=== PATIENT | female | born 1945 | race Hispanic/Latino ===

== ENCOUNTER → 2018-10-10 | Day surgery (SDC) | payer MEDICARE ==
--- OUTSIDE RECORDS SUMMARY | 2018-10-08 10:27 | XMS REPORT ---
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
--- OUTSIDE RECORDS SUMMARY | 2018-10-08 10:27 | XMS REPORT | Continuity of Care Document ---
Author Author [facility] Address Unknown Phone Unavailable Problems Problem Status Onset Date Classification Date Reported Comments Source Polyarthritis Active Problem 06/25/2018 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 Long-term use of high-risk medication Active Problem 06/25/2018 Urban Juan Carlos Osteoporosis Active Problem 06/25/2018 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 Vitamin D deficiency Active Problem 06/25/2018 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 Shoulder pain, right Active Problem 06/25/2018 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 Wheezing Active Problem 06/25/2018 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 [facility] use of non-steroidal anti-inflammatories (NSAID) Active Problem 06/25/2018 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 Osteoarthritis Active Problem 06/25/2018 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 Medications Medication Details Route Status Patient Instructions Ordering Provider Order Date Source Tramadol HCl 1 tablet as needed Orally Active 50 MG Orally TID Shields 01/21/2018 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 Diclofenac Sodium 4 grams Transdermal Active 1 % Transdermal Four times a day [place] 11/21/2017 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 Plaquenil 1 tablet with food or milk Orally Active 200 MG Orally Once a day Shields 11/21/2017 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 Synvisc One 1 Intra-articular Active 48 MG/6ML Intra-articular one injecition Shields 05/24/2017 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 Vitamin D 1 capsule Orally Active 12915 U Orally Once a week Shields 05/24/2017 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 Celecoxib 1 capsule Orally Active 100 MG Orally Twice a day Shields 03/29/2017 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 Metoprolol Succinate as directed Orally Active 100 MG Orally [place] 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 Celecoxib 1 capsule Orally Active 100 MG Orally Twice a day [place] 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 GlipiZIDE XL 1 tablet Orally Active 5 MG Orally Once a day [place] 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 Pravastatin Sodium 1 tablet Orally Active 40 MG Orally Once a day [place] 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 Vitamin D 1 capsule Orally Active 39876 U Orally Once a week [place] 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 Losartan Potassium 1 tablet Orally Active 100 MG Orally Once a day [place] 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 Fenofibrate 1 tablet with a meal Orally Active 160 MG Orally Once a day [place] 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 Omeprazole 1 capsule Orally Active 40 MG Orally Once a day [place] 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 Prolia as directed Subcutaneous Active 60 MG/ML Subcutaneous [place] 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 Nisoldipine ER 1 tablet on an empty stomach Orally Active 17 MG Orally Once a day [place] 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 Vitamin D 2 tablets Orally Active 400 UNIT Orally Once a day Shields 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 Tramadol one tab orally Active 50 mg orally every 4-6 hours prn pain Shields 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 Tylenol 2 tablets as needed Orally Active 325 MG Orally BID [place] 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 Plaquenil 1 tablet with food or milk Orally Active 200 MG Orally Once a day [place] 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 Allergies, Adverse Reactions, Alerts Substance Category Reaction Severity Reaction type Status Date Reported Comments Source N.K.D.A. Adverse Reaction Info Not Available Adverse Reaction Active 05/24/2018 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 Immunizations Immunization Date Given Site Status Last Updated Comments Source Results Order Name Results Value Reference Range Date Interpretation Comments Source Vital Signs Vital Sign Value Date Comments Source Weight 130.8 05/24/2018 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 Height 62 05/24/2018 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 Temperature Oral (F) 98.7 F 05/24/2018 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 Heart Rate 70 05/24/2018 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 Diastolic (mm Hg) 60 05/24/2018 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 Systolic (mm Hg) 110 05/24/2018 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 Weight 129.7 01/21/2018 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 Height 62 01/21/2018 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 Temperature Oral (F) 98.7 F 01/21/2018 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 Heart Rate 74 01/21/2018 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 Diastolic (mm Hg) 70 01/21/2018 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 Systolic (mm Hg) 126 01/21/2018 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 Weight 127 11/21/2017 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 Height 62 11/21/2017 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 Temperature Oral (F) 98.0 F 11/21/2017 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 Heart Rate 72 11/21/2017 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 Diastolic (mm Hg) 64 11/21/2017 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 Systolic (mm Hg) 120 11/21/2017 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 Weight 128.7 08/09/2017 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 Height 61 08/09/2017 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 Temperature Oral (F) 98.5 F 08/09/2017 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 Heart Rate 70 08/09/2017 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 Diastolic (mm Hg) 76 08/09/2017 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 Systolic (mm Hg) 118 08/09/2017 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 Weight 128.2 05/24/2017 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 Height 61 05/24/2017 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 Temperature Oral (F) 98.7 F 05/24/2017 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 Heart Rate 80 05/24/2017 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 Diastolic (mm Hg) 66 05/24/2017 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 Systolic (mm Hg) 120 05/24/2017 Urban Bakerer Encounters Location Location Details Encounter Type Encounter Number Reason For Visit Attending Provider ADM Date DC Date Status Source Outpatient [id number] FAYE VALERA 12/01/2015 Active [facility] Procedures Procedure Code Date Perfomer Comments Source
--- OUTSIDE RECORDS SUMMARY | 2018-10-08 10:28 | XMS REPORT ---
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
--- OUTSIDE RECORDS SUMMARY | 2018-10-08 10:28 | XMS REPORT ---
Author Author Naida Shields [facility] eClinicalWorks Address Unknown Phone Unavailable Care Team Providers Care Bean Snipper Name Role Phone Naida Shields CP Unavailable Allergies, Adverse Reactions, Alerts Substance Reaction Event Type N.K.D.A. Info Not Available Non Drug Allergy Problems Problem Type Condition Code Onset Dates Condition Status Assessment Polyarthritis M13.0 Active Problem Polyarthritis M13.0 Active Assessment Osteoarthritis M19.90 Active Problem Long-term use of high-risk medication Z79.899 Active Problem Osteoporosis M81.0 Active Problem Vitamin D deficiency E55.9 Active Problem Shoulder pain, right M25.511 Active Problem Wheezing R06.2 Active Problem long-term (current) use of non-steroidal anti-inflammatories (NSAID) Z79.1 Active Problem Osteoarthritis M19.90 Active Medications Medication Code System Code Instructions Start Date End Date Status Dosage Nisoldipine ER ND 29420617849 17 MG Orally Once a day Active 1 tablet on an empty stomach Plaquenil ND 55769448028 200 MG Orally Once a day November 21, 2017 Active 1 tablet with food or milk Tylenol ND 07385846760 325 MG Orally BID Active 2 tablets as needed Fenofibrate ND 25464573576 160 MG Orally Once a day Active 1 tablet with a meal Losartan Potassium ND 95047628347 100 MG Orally Once a day Active 1 tablet Metoprolol Succinate NDC 0 100 MG Orally Active as directed GlipiZIDE XL ND 59595971771 5 MG Orally Once a day Active 1 tablet Prolia ND 84591768220 60 MG/ML Subcutaneous Active as directed Omeprazole ND 45782174268 40 MG Orally Once a day Active 1 capsule Tramadol HCl ND 07573443472 50 MG Orally TID January 21, 2018 Feb 20, 2018 Active 1 tablet as needed Diclofenac Sodium ND 99564918300 1 % Transdermal Four times a day November 21, 2017 Active 4 grams Vital Signs Date/Time: January 21, 2018 BMI 23.72 Index Weight 129.7 lbs Height 62 in Temperature 98.7 F Cardiac Monitoring Heart Rate 74 /min Blood Pressure Diastolic 70 mm Hg Blood Pressure Systolic 126 mm Hg Results No Known Results Summary Purpose eClinicalWorks Submission
--- OUTSIDE RECORDS SUMMARY | 2018-10-08 10:28 | XMS REPORT ---
Author Author Naida Shields [facility] eClinicalWorks Address Unknown Phone Unavailable Care Team Providers Care Transport Nurse Name Role Phone Naida Shields Unavailable Allergies, Adverse Reactions, Alerts Substance Reaction Event Type N.K.D.A. 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 (NSAID) Z79.1 Active Problem Osteoarthritis M19.90 Active Medications Medication Code System Code Instructions Start Date End Date Status Dosage Pravastatin Sodium ND 09545548990 40 MG Orally Once a day Active 1 tablet Prolia [facility] 63468652817 60 MG/ML Subcutaneous Active as directed Diclofenac Sodium [facility] 86802624877 1 % Transdermal Four times a day November 21, 2017 February 19, 2018 Active 4 grams Plaquenil [facility] 81894846373 200 MG Orally Once a day November 21, 2017 February 19, 2018 Active 1 tablet with food or milk Fenofibrate ND 12442947647 160 MG Orally Once a day Active 1 tablet with a meal Omeprazole ND 76324620801 40 MG Orally Once a day Active 1 capsule Losartan Potassium ND 88722094275 100 MG Orally Once a day Active 1 tablet Nisoldipine ER ND 66853504259 17 MG Orally Once a day Active 1 tablet on an empty stomach Metoprolol Succinate NDC 0 100 MG Orally Active as directed GlipiZIDE XL ND 81600625934 5 MG Orally Once a day Active 1 tablet Vitamin D [facility] [address]-43 76258 U Orally Once a week Active 1 capsule Vital Signs Date/Time: November 21, 2017 BMI 23.23 Index Weight 127 lbs Height 62 in Temperature 98.0 F Cardiac Monitoring Heart Rate 72 /min Blood Pressure Diastolic 64 mm Hg Blood Pressure Systolic 120 mm Hg Results No Known Results Summary Purpose eClinicalWorks Submission
--- OUTSIDE RECORDS SUMMARY | 2018-10-08 10:28 | XMS REPORT ---
Author Author Naida Shields [facility] eClinicalWorks Address Unknown Phone Unavailable Care Team Providers Care Paring Machine Operator Name Role Phone Naida Shields Unavailable Allergies, Adverse Reactions, Alerts Substance Reaction Event Type N.K.D.A. 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) Z79.1 Active Problem Osteoarthritis M19.90 Active Medications Medication Code System Code Instructions Start Date End Date Status Dosage Losartan Potassium ND 54149093830 100 MG Orally Once a day Active 1 tablet Celecoxib ND 84688089392 100 MG Orally Twice a day Mar 29, 2017 Active 1 capsule Pravastatin Sodium ND 71693920177 40 MG Orally Once a day Active 1 tablet Vitamin D [facility] 52749462570 400 UNIT Orally Once a day Active 2 tablets Synvisc One [facility] 17233536077 48 MG/6ML Intra-articular one injecition May 24, 2017 May 25, 2017 Active 1 Metoprolol Succinate NDC 0 100 MG Orally Active as directed Vitamin D [facility] [address]-26 95529 U Orally Once a week May 24, 2017 November 20, 2017 Active 1 capsule GlipiZIDE XL ND 02862216974 5 MG Orally Once a day Active 1 tablet Nisoldipine ER ND 18288813574 17 MG Orally Once a day Active 1 tablet on an empty stomach Omeprazole ND 56576527780 40 MG Orally Once a day Active 1 capsule Prolia [facility] 36645459214 60 MG/ML Subcutaneous Active as directed Fenofibrate [facility] 69648463628 160 MG Orally Once a day Active 1 tablet with a meal Vital Signs Date/Time: May 24, 2017 BMI 24.22 Index Weight 128.2 lbs Height 61 in Temperature 98.7 F Cardiac Monitoring Heart Rate 80 /min Blood Pressure Diastolic 66 mm Hg Blood Pressure Systolic 120 mm Hg Results No Known Results Summary Purpose eClinicalWorks Submission
--- OUTSIDE RECORDS SUMMARY | 2018-10-08 10:28 | XMS REPORT ---
Author Author Kelli Vann [facility] eClinicalWorks Address Unknown Phone Unavailable Care Team Providers Care Cattle Alley Worker Name Role Phone Soo Mekhicristiane Unavailable Allergies, Adverse Reactions, Alerts Substance Reaction Event Type N.K.D.A. 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 anti-inflammatories (NSAID) Z79.1 Active Problem Osteoarthritis M19.90 Active Medications Medication Code System Code Instructions Start Date End Date Status Dosage Metoprolol Succinate NDC 0 100 MG Orally Active as directed Celecoxib ND 73617822384 100 MG Orally Twice a day Active 1 capsule GlipiZIDE XL ND 53004941709 5 MG Orally Once a day Active 1 tablet Pravastatin Sodium ND 16413726535 40 MG Orally Once a day Active 1 tablet Vitamin D [facility] [address]-58 92107 U Orally Once a week Active 1 capsule Losartan Potassium ND 39553865394 100 MG Orally Once a day Active 1 tablet Fenofibrate ND 21975033134 160 MG Orally Once a day Active 1 tablet with a meal Omeprazole ND 14254253899 40 MG Orally Once a day Active 1 capsule Prolia ND 04416079733 60 MG/ML Subcutaneous Active as directed Nisoldipine ER ND 28459692135 17 MG Orally Once a day Active 1 tablet on an empty stomach Vital Signs Date/Time: Aug 09, 2017 BMI 24.31 Index Weight 128.7 lbs Height 61 in Temperature 98.5 F Cardiac Monitoring Heart Rate 70 /min Blood Pressure Diastolic 76 mm Hg Blood Pressure Systolic 118 mm Hg Results No Known Results Summary Purpose eClinicalWorks Submission
--- OUTSIDE RECORDS SUMMARY | 2018-10-08 10:28 | XMS REPORT ---
Author Author Nevaeh Whiting [facility] eClinicalWorks Address Unknown Phone Unavailable Care Team Providers Care Desk Sergeant Name Role Phone Nevaeh Whiting Unavailable Allergies, Adverse Reactions, Alerts Substance Reaction Event Type N.K.D.A. 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 non-steroidal anti-inflammatories (NSAID) Z79.1 Active Problem Osteoarthritis M19.90 Active Medications Medication Code System Code Instructions Start Date End Date Status Dosage Losartan Potassium ND 33825511678 100 MG Orally Once a day Active 1 tablet Nisoldipine ER ND 53015572432 17 MG Orally Once a day Active 1 tablet on an empty stomach Fenofibrate ND 11927934301 160 MG Orally Once a day Active 1 tablet with a meal Diclofenac Sodium [facility] 89578022034 1 % Transdermal Four times a day November 21, 2017 Active 4 grams Plaquenil ND 35371194772 200 MG Orally Once a day Active 1 tablet with food or milk Tylenol ND 87004059870 325 MG Orally BID Active 2 tablets as needed Omeprazole ND 15155726467 40 MG Orally Once a day Active 1 capsule Prolia [facility] 42524697133 60 MG/ML Subcutaneous Active as directed Metoprolol Succinate NDC 0 100 MG Orally Active as directed GlipiZIDE XL ND 90178187667 5 MG Orally Once a day Active 1 tablet Vital Signs Date/Time: May 24, 2018 BMI 23.92 Index Weight 130.8 lbs Height 62 in Temperature 98.7 F Cardiac Monitoring Heart Rate 70 /min Blood Pressure Diastolic 60 mm Hg Blood Pressure Systolic 110 mm Hg Results Name Result Date Reference Range Unit Abnormality Flag CBC W/AUTO DIFF ----MONOCYTES 7.8 [id number] 4.0-13.0 % ----LYMPHOCYTES 21.2 [id number] 19.0-48.0 % ----HEMOGLOBIN 12.8 54486902 11.5-15.5 G/DL ----HEMATOCRIT 39.0 98222127 34.0-45.0 % ----MCV 89.9 75719656 80.0-100.0 fL ----MCH 29.5 09383839 27.0-34.0 PG ----MCHC 32.8 14217550 32.0-35.5 G/DL ----PLATELET COUNT 548 48611716 130-400 K/UL H ----RDW 12.0 97003957 11.0-15.0 % ----WBC 8.1 57274287 4.0-11.0 K/UL ----NEUTROPHILS 68.7 67681883 40.0-74.0 % ----BASOPHILS 0.2 24699126 0.0-2.0 % ----RBC 4.34 31262850 3.80-5.10 M/UL ----EOSINOPHILS 2.1 77328378 0.0-7.0 % VITAMIN D, 25 OH ----VITAMIN D, 25 OH 56 [id number] SEE BELOW NG/ML COMPREHENSIVE METABOLIC PANEL ----SODIUM 141 28632226 133-146 MEQ/L ----CALC BUN/CREAT 29 42244890 6-28 RATIO H ----CHLORIDE 104 06989672 95-107 MEQ/L ----POTASSIUM 4.7 06342051 3.5-5.4 MEQ/L ----CALCIUM 9.9 34053881 8.5-10.5 MG/DL ----PROTEIN, TOTAL 7.0 61743342 6.1-8.3 G/DL ----CARBON DIOXIDE 24 20180524 19-31 MEQ/L ----CALC A/G RATIO 1.6 59251922 1.0-2.6 RATIO ---- eGFR AMER. 100 20180524 >60 ML/MIN/1.73 ----BILIRUBIN, TOTAL <0.2 20180524 <=1.2 MG/DL ---- eGFR NON- AMER. 86 20180524 >60 ML/MIN/1.73 ----BUN 20 20180524 8-23 MG/DL ----ALBUMIN 4.3 74560905 3.5-5.2 G/DL ----CALC GLOBULIN 2.7 20180524 1.9-3.7 G/DL ----CREATININE 0.68 20180524 0.60-1.30 MG/DL ----ALT 13 20180524 5-40 U/L ----GLUCOSE 153 20180524 70-99 MG/DL H ----ALKALINE PHOSPHATASE 42 20180524 40-142 U/L ----AST 18 20180524 9-40 U/L Summary Purpose eClinicalWorks Submission
--- OUTSIDE RECORDS SUMMARY | 2018-10-08 10:28 | XMS REPORT ---
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
--- OUTSIDE RECORDS SUMMARY | 2018-10-08 10:28 | XMS REPORT ---
Author Author Stephen Rangel Organization eClinicalWorks Address Unknown Phone Unavailable Care Team Providers Care Insulation Supervisor Name Role Phone Stephen Rangel CP Unavailable Allergies No Known Allergies Problems Problem Type Condition Code Onset Dates Condition Status Problem Polyarthritis M13.0 Active Problem Long-term use of high-risk medication Z79.899 Active Problem Osteoporosis M81.0 Active Problem Vitamin D deficiency E55.9 Active Problem Shoulder pain, right M25.511 Active Problem Wheezing R06.2 Active Problem terminal carman (current) use of non-steroidal anti-inflammatories (NSAID) Z79.1 Active Problem Osteoarthritis M19.90 Active Medications No Known Medications Results No Known Results Summary Purpose eClinicalWorks Submission
[2018-10-08 12:17] LABS: BASOPHILS % 0.2 % (0.0-1.0); EOSINOPHILS # (AUTO) 0.6 (0.0-0.4); EOSINOPHILS % 6.3 % (0.0-6.0); HEMOGLOBIN 9.1 g/dL (12.0-16.0); LYMPHOCYTES # (AUTO) 1.6 (1.0-3.2); LYMPHOCYTES % 18.4 % (18.0-39.1); MEAN CORPUSCULAR HEMOGLOBIN 28.7 pg (28-32); MEAN CORPUSCULAR HGB CONC 30.3 g/dL (31-35); MEAN CORPUSCULAR VOLUME 94.6 fL (81-99); MONOCYTES # (AUTO) 0.5 (0.2-0.8); MONOCYTES % 6.1 % (4.4-11.3); NEUTROPHILS # (AUTO) 6.1 (2.1-6.9); NEUTROPHILS % 68.5 % (38.7-80.0); PLATELET COUNT 754 x10e3/uL (140-360); RED BLOOD COUNT 3.17 x10e6/uL (3.6-5.1); RED CELL DISTRIBUTION WIDTH 13.6 % (11.7-14.4)
[~2018-10-10] MED LIST: DECARA25000 UNIT; FENOFIBRATE145 MG; FENTANYL CITRATE/PF 100MCG/2 ML INJ ONE; GLIPIZIDE ER5 MG; IRON PILL; LORATADINE10 MG PO; LOSARTAN POTAS100 MG PO; MELOXICAM7.5 MG PO; METOPROLOL SUCC50 MG PO; MIDAZOLAM HCL 2 MG/2 ML VIAL ONE; NIFEDIPINE ER30 MG; OMEPRAZOLE40 MG; PROPOFOL IV EMULSION 10 MG/ML 50 ML VIAL ONE
[2018-10-10 09:30] VITALS: BP 127/67
== END | disposition home or self-care (01) ==
LOC: OR 10-08 10:24 → EDSEX 08:30
PROVIDERS: ATTEND Internal Medicine Gastroenterology
DX: K29.50 Unspecified chronic gastritis without bleeding (principal); K25.7 Chronic gastric ulcer without hemorrhage or perforation; K57.30 Diverticulosis of large intestine without perforation or abscess without bleeding; K64.8 Other hemorrhoids; K21.9 Gastro-esophageal reflux disease without esophagitis; Z71.3 Dietary counseling and surveillance; D64.9 Anemia, unspecified; E11.9 Type 2 diabetes mellitus without complications; I10 Essential (primary) hypertension; J30.2 Other seasonal allergic rhinitis; Z01.810 Encounter for preprocedural cardiovascular examination; Z79.84 Long term (current) use of oral hypoglycemic drugs
CPT/HCPCS: 36415 ×2; 43239; 45378; 82948; 85025; 88305; 88312; 93005; J2250; J2704

== ENCOUNTER 2020-06-04 18:23 | Observation (INO) | payer MEDICARE ==
[~2020-06-04] VITALS: Ht 160 cm; Wt 75.1 kg
[~2020-06-04 18:23] MED LIST changes: -FENTANYL CITRATE/PF 100MCG/2 ML INJ ONE; -GLIPIZIDE ER5 MG; +GLIPIZIDE ER5 MG PO; -MIDAZOLAM HCL 2 MG/2 ML VIAL ONE; -PROPOFOL IV EMULSION 10 MG/ML 50 ML VIAL ONE
--- NOTE | 2020-06-04 18:26 | Emergency Department Note ---
History of Present Illnes History of Present Illness History of Present Illness This is a 74 year old female presents to the ED for non-radiating CP without SOB. Seen at bedside NAD. recent fall on 05/26/2020 and was checked out by EMS with noted low BS. Patient was not taken to ED and was evaluated .Since the fall, patient has been appearing weaker per family member. Seen at bedside NAD Historian: Patient Arrival Mode: Car Onset (how long ago): day(s) Location: Substernal CP Radiation: Reports non-radiation Severity: moderate Onset quality: gradual Duration (how long): day(s) (1) Timing of current episode: constant Progression: worsening Chronicity: new Context: Denies recent illness, Denies recent surgery, Denies recent immobilization, Denies recent travel, Denies trauma/injury, Denies new medications, Denies hx of DVT/PE, Denies non-compliance w/ medications, Denies other Relieving factors: none Exacerbating factors: none Associated symptoms: Reports chest pain, Reports weakness Treatments prior to arrival: none Past Medical/Family History Physician Review I have reviewed the patient's past medical and family history. Any updates have been documented here. Past Medical History Recent Fever: No Clinical Suspicion of Infectio: No New/Unexplained Change in Ment: No Social History Smoking Cessation: Never Smoker Alcohol Use: None Any Illegal Drug Use: No Review of Systems Review of Systems Constitutional: Reports weakness, Reports other (myalgias) EENTM: Reports no symptoms Cardiovascular: Reports chest pain Respiratory: Reports no symptoms Gastrointestinal: Reports no symptoms Genitourinary: Reports no symptoms Musculoskeletal: Reports no symptoms Integumentary: Reports no symptoms Neurological: Reports no symptoms Psychological: Reports no symptoms Endocrine: Reports no symptoms Hematological/Lymphatic: Reports no symptoms Physical Exam Related Data Allergies: Coded Allergies: No Known Allergies (Unverified , 06/04/20) Triage Vital Signs Vital Signs Date Time Temp Pulse Resp B/P (MAP) Pulse Ox O2 Delivery O2 Flow Rate FiO2 06/04/20 18:50 98.1 82 18 175/105 99 Room Air Vital signs reviewed: Yes Physical Exam CONSTITUTIONAL Constitutional: Present well-developed, Present well-nourished HENT HENT: Present normocephalic, Present atraumatic, Present oropharynx clear/moist, Present nose normal HENT L/R: Present left ext ear normal, Present right ext ear normal EYES Eyes: Reports PERRL, Reports conjunctivae normal NECK Neck: Present ROM normal PULMONARY Pulmonary: Present effort normal, Present breath sounds normal CARDIOVASCULAR Cardiovascular: Present regular rhythm, Present heart sounds normal, Present capillary refill normal, Present normal rate, Present bradycardia GASTROINTESTINAL Abdominal: Present soft, Present nontender, Present bowel sounds normal GENITOURINARY Genitourinary: Present exam deferred SKIN Skin: Present warm, Present dry MUSCULOSKELETAL Musculoskeletal: Present ROM normal NEUROLOGICAL Neurological: Present alert, Present oriented x 3, Present no gross motor or sensory deficits PSYCHOLOGICAL Psychological: Present mood/affect normal, Present judgement normal Results Laboratory Lab results reviewed: Yes Laboratory comments Laboratory Tests Test 06/05/20 02:50 06/04/20 23:42 06/04/20 18:49 White Blood Count 6.66 x10e3/uL (4.8-10.8) 8.65 x10e3/uL (4.8-10.8) Red Blood Count 3.76 x10e6/uL (3.6-5.1) 3.95 x10e6/uL (3.6-5.1) Hemoglobin 10.1 g/dL (12.0-16.0) 10.6 g/dL (12.0-16.0) Hematocrit 32.9 % (34.2-44.1) 34.5 % (34.2-44.1) Mean Corpuscular Volume 87.5 fL (81-99) 87.3 fL (81-99) Mean Corpuscular Hemoglobin 26.9 pg (28-32) 26.8 pg (28-32) Mean Corpuscular Hemoglobin Concent 30.7 g/dL (31-35) 30.7 g/dL (31-35) Red Cell Distribution Width 15.9 % (11.7-14.4) 15.8 % (11.7-14.4) Platelet Count 342 x10e3/uL (140-360) 382 x10e3/uL (140-360) Neutrophils (%) (Auto) 58.9 % (38.7-80.0) 65.0 % (38.7-80.0) Lymphocytes (%) (Auto) 27.5 % (18.0-39.1) 23.2 % (18.0-39.1) Monocytes (%) (Auto) 8.3 % (4.4-11.3) 8.1 % (4.4-11.3) Eosinophils (%) (Auto) 3.5 % (0.0-6.0) 2.2 % (0.0-6.0) Basophils (%) (Auto) 0.3 % (0.0-1.0) 0.2 % (0.0-1.0) Neutrophils # (Auto) 3.9 (2.1-6.9) 5.6 (2.1-6.9) Lymphocytes # (Auto) 1.8 (1.0-3.2) 2.0 (1.0-3.2) Monocytes # (Auto) 0.6 (0.2-0.8) 0.7 (0.2-0.8) Eosinophils # (Auto) 0.2 (0.0-0.4) 0.2 (0.0-0.4) Basophils # (Auto) 0.0 (0.0-0.1) 0.0 (0.0-0.1) Absolute Immature Granulocyte (auto 0.10 x10e3/uL (0-0.1) 0.11 x10e3/uL (0-0.1) Sodium Level 141 mmol/L (136-145) 141 mmol/L (136-145) Potassium Level 3.8 mmol/L (3.5-5.1) 3.8 mmol/L (3.5-5.1) Chloride Level 106 mmol/L (98-107) 105 mmol/L (98-107) Carbon Dioxide Level 26 mmol/L (22-29) 25 mmol/L (22-29) Anion Gap 12.8 mmol/L (8-16) 14.8 mmol/L (8-16) Blood Urea Nitrogen 12 mg/dL (7-26) 14 mg/dL (7-26) Creatinine 0.70 mg/dL (0.57-1.11) 0.76 mg/dL (0.57-1.11) Estimat Glomerular Filtration Rate > 60 ML/MIN (60-) > 60 ML/MIN (60-) BUN/Creatinine Ratio 17 (6-25) 18 (6-25) Glucose Level 158 mg/dL (74-118) 117 mg/dL (74-118) Calcium Level 9.2 mg/dL (8.4-10.2) 9.1 mg/dL (8.4-10.2) Total Bilirubin 0.2 mg/dL (0.2-1.2) 0.2 mg/dL (0.2-1.2) Aspartate Amino Transf (AST/SGOT) 9 IU/L (5-34) 9 IU/L (5-34) Alanine Aminotransferase (ALT/SGPT) 7 IU/L (0-55) 7 IU/L (0-55) Alkaline Phosphatase 50 IU/L (40-150) 53 IU/L (40-150) Creatine Kinase 40 IU/L (29-168) 48 IU/L (29-168) Creatine Kinase MB 0.80 ng/mL (0-5.0) 0.90 ng/mL (0-5.0) Troponin I 0.028 ng/mL (0-0.300) 0.011 ng/mL (0-0.300) Total Protein 6.4 g/dL (6.5-8.1) 6.9 g/dL (6.5-8.1) Albumin 3.0 g/dL (3.5-5.0) 3.3 g/dL (3.5-5.0) Globulin 3.4 g/dL (2.3-3.5) 3.6 g/dL (2.3-3.5) Albumin/Globulin Ratio 0.9 (0.8-2.0) 0.9 (0.8-2.0) D-Dimer Quantitative (PE/DVT) 1.20 ug/mLFEU (0.00-0.45) B-Type Natriuretic Peptide 113.6 pg/mL (0-100) Imaging Imaging results reviewed: Yes Impressions [place] [address] Patient Name: LAURIE PEREZ MR #: [id number] : 1945 Age/Sex: 74/F Req #: [id number] Adm Physician: ROYAL MCCORD MD Ordered by: ARASELI ISAAC DO Report #: [id number] Location: [facility] Room/Bed: [place] [address] Procedure: [id number] CT/CT CHEST W Exam Date: Exam Time: REPORT STATUS: Signed EXAM: CT Chest WITH contrast (PE Protocol) INDICATION: ^chest pain COMPARISON: None TECHNIQUE: Chest was scanned utilizing a multidetector helical scanner from the lung apex through the level of the diaphragm after administration of IV contrast. Thin section reconstructions were obtained with special concentration on the pulmonary arteries. Coronal and sagittal reformations were obtained. Pulmonary embolism protocol was performed. IV CONTRAST: 100 mL of Isovue 370 COMPLICATIONS: None RADIATION DOSE: Total DLP: 465 mGy*cm Estimated effective dose: (DLP x 0.014 x size factor) mSv CTDIvol has been reviewed. It is below the limits set by the Radiation Protocol Committee (RPC). Dose modulation, iterative reconstruction, and/or weight based adjustment of the mA/kV was utilized to reduce the radiation dose to as low as reasonably achievable. FINDINGS: LINES/ TUBES: None. LUNGS AND AIRWAYS: No filling defect is identified within the pulmonary arteries to the segmental level. The lungs are unremarkable. Airways are normal. PLEURA: The pleural spaces are clear. HEART AND MEDIASTINUM: The thyroid gland is normal. No mediastinal, hilar or axillary lymphadenopathy. The heart is mildly enlarged. There is no pericardial effusion. . Main pulmonary artery measures 3.2 cm in diameter, slightly dilated, and the ascending aorta measures 3.2 cm.Triple vessel coronary artery calcific atherosclerosis. Aortic calcifications. UPPER ABDOMEN: Subcentimeter exophytic hypodensity along the left kidney is likely benign. Colonic diverticuli. BONES: The visualized bony thorax is within normal limits. Degenerative changes. SOFT TISSUES: Unremarkable. IMPRESSION: No pulmonary emboli. Mild cardiomegaly, triple vessel coronary artery calcific atherosclerosis, and evidence of pulmonary hypertension. Signed by: Speedy Sheikh DO on 06/04/2020 10:50 PM Dictated By: SPEEDY SHEIKH DO 49 Transcribed By: TALIA on 06/04/202249 COPY TO: ARASELI ISAAC DO~ [place] [address] Patient Name: LAURIE PEREZ MR #: [id number] : 1945 Age/Sex: 74/F Req #: [id number] Adm Physician: Ordered by: ARASELI ISAAC DO Report #: [id number] Location: ER Room/Bed: Procedure: [id number] DX/CHEST SINGLE (PORTABLE) Exam Date: 06/04/20 Exam Time: 1904 REPORT STATUS: Signed EXAMINATION: CHEST SINGLE (PORTABLE) INDICATION: Chest pain/pressure. COMPARISON: None FINDINGS: TUBES and LINES: None. LUNGS: Lungs are well inflated. Lungs are clear. There is minimal bilateral prominence of the central pulmonary vasculature, consistent with pulmonary venous congestion. PLEURA: No pleural effusion or pneumothorax. HEART AND MEDIASTINUM: Cardiac size is moderately enlarged. There are atherosclerotic calcifications within the aorta. Diffuse consolidation of the trachea. BONES AND SOFT TISSUES: No acute osseous lesion. Soft tissues are unremarkable. UPPER ABDOMEN: No free air under the diaphragm. IMPRESSION: Moderate cardiomegaly. Mild bilateral pulmonary venous congestion. Signed by: Dr. Del Coronado M.D. on 06/04/2020 7:21 PM Dictated By: LEE CORONADO MD, MD 20 Transcribed By: TALIA on 06/04/201920 COPY TO: ARASELI ISAAC DO~ Procedures 12 Lead ECG Interpretation ECG Interpretation : ECG: ECG 1 Online Editor: Interpreted by ED physician Date: Jun 04, 2020 Time: 18:54 Rhythm: sinus bradycardia Rate: bradycardia BPM: 56 ST segments normal: Yes T waves normal: No T waves flattening: V1, V2, V4, V5 Other findings: no other findings Clinical Impression: non-specific ECG Assessment & Plan Medical Decision Making MDM 74 yof with CP. Cardiac enzymes, EKG, and CXR/CT scan of chest wall ordered to evaluate for ACS, PNA, PTX, CHF, PE. CVA and aortic pathology Assessment & Plan Final Impression: (1) Weakness (2) Chest pain Depart Disposition: ADMITTED Home Meds Reported Medications Omeprazole (OMEPRAZOLE) 40 Mg Capsule.dr, 40 MG PO AC 06/05/20 Metoprolol Succinate (METOPROLOL SUCCINATE) 50 Mg Tab.er.24h, 100 MG PO DAILY, MG 06/05/20 [Losartan/Hctz] No Conflict Check, MG PO DAILY LOSARTAN-HCTZ 100-25MG 06/05/20 Doxazosin Mesylate (DOXAZOSIN MESYLATE) 1 Mg Tablet, 1 MG PO DAILY 06/05/20 Glipizide (GLIPIZIDE ER) 5 Mg Tab.er.24, 5 MG PO DAILY 10/08/18 Discontinued Reported Medications [Iron Pill] No Conflict Check, 325 10/08/18 Cholecalciferol (Vitamin D3) (DECARA) 25,000 Unit Capsule, 62631 10/08/18 Nifedipine (NIFEDIPINE ER) 30 Mg Tablet.er 10/08/18 Loratadine (LORATADINE) 10 Mg Tablet, 10 MG PO DAILY, #30 TAB 10/08/18 Fenofibrate Nanocrystallized (FENOFIBRATE) 145 Mg Tablet, 160 10/08/18 Losartan Potassium (LOSARTAN POTASSIUM) 100 Mg Tablet, 120 MG PO DAILY, TAB 10/08/18 Omeprazole (OMEPRAZOLE) 40 Mg Capsule.dr 10/08/18 Metoprolol Succinate (METOPROLOL SUCCINATE) 50 Mg Tab.er.24h, 100 MG PO DAILY, MG 10/08/18 Meloxicam (MELOXICAM) 7.5 Mg Tablet, 15 MG PO DAILY, #30 TAB 10/08/18 ARASELI ISAAC DO Jun 04, 2020 18:26
[2020-06-04 19:19] LABS: BASOPHILS % 0.2 % (0.0-1.0); EOSINOPHILS # (AUTO) 0.2 (0.0-0.4); EOSINOPHILS % 2.2 % (0.0-6.0); HEMATOCRIT 34.5 % (34.2-44.1); HEMOGLOBIN 10.6 g/dL (12.0-16.0); LYMPHOCYTES % 23.2 % (18.0-39.1); MEAN CORPUSCULAR HEMOGLOBIN 26.8 pg (28-32); MEAN CORPUSCULAR HGB CONC 30.7 g/dL (31-35); MEAN CORPUSCULAR VOLUME 87.3 fL (81-99); MONOCYTES # (AUTO) 0.7 (0.2-0.8); MONOCYTES % 8.1 % (4.4-11.3); NEUTROPHILS # (AUTO) 5.6 (2.1-6.9); PLATELET COUNT 382 x10e3/uL (140-360); RED BLOOD COUNT 3.95 x10e6/uL (3.6-5.1); RED CELL DISTRIBUTION WIDTH 15.8 % (11.7-14.4)
--- NOTE | 2020-06-04 19:24 | Diagnostic Imaging Report ---
EXAMINATION: CHEST SINGLE (PORTABLE) INDICATION: Chest pain/pressure. COMPARISON: None FINDINGS: TUBES and LINES: None. LUNGS: Lungs are well inflated. Lungs are clear. There is minimal bilateral prominence of the central pulmonary vasculature, consistent with pulmonary venous congestion. PLEURA: No pleural effusion or pneumothorax. HEART AND MEDIASTINUM: Cardiac size is moderately enlarged. There are atherosclerotic calcifications within the aorta. Diffuse consolidation of the trachea. BONES AND SOFT TISSUES: No acute osseous lesion. Soft tissues are unremarkable. UPPER ABDOMEN: No free air under the diaphragm. IMPRESSION: Moderate cardiomegaly. Mild bilateral pulmonary venous congestion. Signed by: Dr. Del Pena M.D. on 06/04/2020 7:21 PM
[2020-06-04 19:38] LABS: ALANINE AMINOTRANSFERASE 7 IU/L (0-55); ALBUMIN 3.3 g/dL (3.5-5.0); ALBUMIN/GLOBULIN RATIO 0.9 (0.8-2.0); ALKALINE PHOSPHATASE 53 IU/L (40-150); ANION GAP 14.8 mmol/L (8-16); BLOOD UREA NITROGEN 14 mg/dL (7-26); BUN/CREATININE RATIO 18 (6-25); CALCIUM 9.1 mg/dL (8.4-10.2); CARBON DIOXIDE 25 mmol/L (22-29); CHLORIDE 105 mmol/L (98-107); CREATINE KINASE 48 IU/L (29-168); CREATININE, SERUM 0.76 mg/dL (0.57-1.11); EST GLOMERULAR FILTRATION RATE > 60 ML/MIN (60-); GLUCOSE 117 mg/dL (74-118); POTASSIUM 3.8 mmol/L (3.5-5.1); SODIUM 141 mmol/L (136-145)
--- NOTE | 2020-06-04 19:54 | Diagnostic Imaging Report ---
EXAMINATION: Head CT without contrast. HISTORY:Weakness. COMPARISON:None. TECHNIQUE: Multidetector axial images were obtained from the foramen magnum to the vertex without contrast. The images were reconstructed using brain and bone algorithms. Thin section brain images were reformatted into coronal and sagittal planes. Dose modulation, iterative reconstruction, and/or weight based adjustment of the mA/kV was utilized to reduce the radiation dose to as low as reasonably achievable. Intravenous contrast: None IMAGE QUALITY: Acceptable. FINDINGS: Skull/scalp: Nonspecific focal 7 mm lytic lesion in right paramedian occipital calvarium. Parenchyma: Nonspecific bilateral frontoparietal patchy white matter hypodensity are likely related to small vessel ischemic changes. Dystrophic calcification in left lentiform nucleus represents sequel a of prior infection/inflammation or trauma. No acute hemorrhage, mass or acute major vascular territorial infarct. Arteries: No density suggestive of thrombosis. Atherosclerotic calcification in bilateral carotid siphon. Dural sinuses: No abnormal density suggestive of thrombosis. Ventricles: Mild compensated dilatation due to volume loss. No hydrocephalus. Extra-axial spaces: No abnormal density. Brain volume: Moderate generalized, predominantly bilateral frontal volume loss. Craniocervical junction: No mass, Chiari malformation, or basilar invagination. Sella: No mass. Paranasal/mastoid sinuses: 7 mm exophytic sinolith/osteoma in left frontal sinus. IMPRESSION: No acute intracranial abnormality. Moderate supratentorial white matter microvascular ischemic changes. Moderate predominantly bifrontal cerebral volume loss. Signed by: Dr. Rosalie Anaya M.D. on 06/04/2020 7:50 PM
--- OUTSIDE RECORDS SUMMARY | 2020-06-04 19:59 | XMS REPORT | Continuity of Care Document ---
Author Author [employer] Address Unknown Phone Unavailable Care Team Providers Care Customer Acquisition Manager Name Role Phone [employer] Unavailable Un available Problems Problem Status Onset Date Classification Date Reported Comments Source Polyarthritis Active Problem 04/16/2019 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 Long-term use of high-risk medication Active Problem 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 Osteoporosis Active Problem 04/16/2019 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 Vitamin D deficiency Active Problem 04/16/2019 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 Shoulder pain, right Active Problem 04/16/2019 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 Wheezing Active Problem 04/16/2019 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 anti-inflammatories (NSAID) Active Prob erica 04/16/2019 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 Osteoarthritis Active Problem 04/16/2019 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 Medications Medication Details Route Status Patient Instructions Ordering Provider Order Date Source Tramadol HCl 1 tablet as needed Orally Active 50 MG Orally TID [facility] 01/21/2018 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 Plaquenil 1 tablet with food o r milk Orally Active 200 MG Orally Once a day [facility]s 11/21/2017 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 Diclofenac Sodium 4 grams Transdermal Active 1 % Transdermal Four times a day [place] 11/21/2017 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 Synvisc One 1 Intra-articular Active 48 MG/6ML Intra-articul ar one injecition [facility] 05/24/2017 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 Vitamin D 1 capsule Orally Active 08829 U Orally Once a w zuni Shields 05/24/2017 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 Celecoxib 1 capsule Orally Active 100 MG Orally Twice a d ay Shields 03/29/2017 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 Metoprolol Succinate as direct ed Orally Active 100 MG Orally [place] 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 Celecoxib 1 capsule Orally Active 100 MG Orally Twice a d ay [place] 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 GlipiZIDE XL 1 tablet Orally Active 5 MG Orally Once a day [place] R[facility] Pravastatin Sodium 1 tablet Orally Active 40 MG Orally Once a day [facility]ius Rangel Vitamin D 1 capsule Orally Active 60673 U Orally Once a w zuni Cornelius Rangel Losartan Potassium 1 tablet Orally Active 100 MG Orally Once a day [place] 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 Fenofibrate 1 tablet with a me al Orally Active 160 MG Orally Once a day [place] 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 Omeprazole 1 capsule Orally Active 40 MG Orally Once a day [place] Rangel Prolia as directed Subcutaneous Active 60 MG/ML Subcutaneous [place] 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 Nisoldipine ER 1 tablet on an empty stomach Orally Active 17 MG Orally Once a day [place] 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 Vitamin D 2 tablets Orally Active 400 UNIT Orally Once a day [facility] 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 Tramadol one tab orally Active 50 mg orally every 4-6 hours prn pain Cornelius Rangel Tylenol 2 tablets as needed Orally Active 325 MG Orally BID [place] 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 Plaquenil 1 tablet with food o r milk Orally Active 200 MG Orally Once a day [place] Urbanwalter Rangel Allergies, Adverse Reactions, Alerts Substance Category Reaction Severity Reaction type Status Date Reported Comments Source N.K.D.A. Adverse Reaction Info Not Available Adverse Reaction Active 05/24/2018 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 Immunizations No Data Provided for This Section Results No Data Provided for This Section Pathology Reports No Data Provided for This Section Diagnostic Reports No Data Provided for This Section Consultation Notes No Data Provided for This Section Discharge Summaries No Data Provided for This Section History and Physicals No Data Provided for This Section Vital Signs Vital Sign Value Date Comments Source Weight 130.8 05/24/2018 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 Height 62 1 07/24/2017 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 Temperature Oral (F) 98.7 F 05/24/2018 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 Heart Rate 70 05/24/2018 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 Diastolic (mm Hg) 60 05/24/2018 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 Systolic (mm Hg) 110 05/24/2018 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 Bakerer Weight 129.7 01/21/2018 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 Height 62 0 01/21/2018 [facility] Bakerer Temperature Oral (F) 98.7 F 01/21/2018 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 Heart Rate 74 01/21/2018 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 Diastolic (mm Hg) 70 01/21/2018 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 Systolic (mm Hg) 126 01/21/2018 Urban Bakerer Weight 127 11/21/2017 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 Height 62 0 11/21/2017 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 Temperature Oral (F) 98.0 F 11/21/2017 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 Heart Rate 72 11/21/2017 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 Diastolic (mm Hg) 64 11/21/2017 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 Systolic (mm Hg) 120 11/21/2017 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 Weight 128.7 08/09/2017 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 Height 61 0 08/09/2017 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 Temperature Oral (F) 98.5 F 08/09/2017 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 Heart Rate 70 08/09/2017 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 Diastolic (mm Hg) 76 08/09/2017 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 Systolic (mm Hg) 118 08/09/2017 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 Weight 128.2 05/24/2017 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 Height 61 1 07/24/2016 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 Temperature Oral (F) 98.7 F 05/24/2017 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 Heart Rate 80 05/24/2017 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 Diastolic (mm Hg) 66 05/24/2017 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 Systolic (mm Hg) 120 05/24/2017 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 Encounters No Data Provided for This Section Procedures No Data Provided for This Section Assessment and Plan No Data Provided for This Section Plan of Care No Data Provided for This Section Social History No Data Provided for This Section Family History No Data Provided for This Section Advance Directives No Data Provided for This Section Functional Status No Data Provided for This Section
--- OUTSIDE RECORDS SUMMARY | 2020-06-04 19:59 | XMS REPORT | Continuity of Care Document ---
Author Author [facility] t Organization [facility] Address [address] [place] [address] Phone Unavailable Care Team Providers Care Carriage Dogger Name Role Phone ARASELI ISAAC Unavailable Payers Payer Name Policy Type Policy Number Effective Date Expiration Date S ource Problems Condition Name Condition Details Condition Category Status Onset Date Resolution Date Last Treatment Date Treating Clinician Comments Source Polyarthritis Poly arthritis Active Problem 04/16/2019 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 Problem Active 2019-04-16 02:57:44 Brock Abrams Long-term use of high-risk medication Long-term use of high-risk medication Active Problem 04/16/2019 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 Problem Active 2019-04-16 02:57:44 Brock Abrams Osteoporosis Oste oporosis Active Problem 04/16/2019 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 Problem Active 2019-04-16 02:57:44 Brock Abrams Vitamin D deficiency Patricia min D deficiency Active Problem 04/16/2019 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 Problem Active 2019-04-16 02:57:44 Brock Abrams Shoulder pain, right Shou lder pain, right Active Problem 04/16/2019 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 Problem Active 2019-04-16 02:57:44 Brock Abrams Wheezing Whee zing Active Problem 04/16/2019 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 Problem Active 2019-04-16 02:57:44 Constantin Abrams skilled nursing (current) use of non-steroidal anti-inflamma tories (NSAID) inspector tool (current) use of non-steroidal anti-inflammatories (NSAID) Active Problem 04/16/2019 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 Problem Active 2019-04-16 02:57:44 [facility] Osteoarthritis Oste oarthritis Active Problem 04/16/2019 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 Problem Active 2019-04-16 02:57:44 [facility] Allergies, Adverse Reactions, Alerts Allergy Name Allergy Type Status Severity Reaction(s) Onset Date Inacti ve Date Treating Clinician Comments Source No Known Allergies DA Active U 2019-01-17 00:00:00 [facility] N.KOniA. N.Musa Active Info Not Available 2018-05-24 00:00:00 [facility] Medications Ordered Medication Name Filled Medication Name Start Date Stop Da te Current Medication? Ordering Clinician Indication Dosage Frequency Signature (SIG) Comments Components Source Tramadol 2018-06-25 03:46:48 Yes Naida Shields o ne tab [facility] Metoprolol Succinate 2018-06-04 03:47:00 Yes Wajeeha You saf as directed [facility] GlipiZIDE XL 2018-06-04 03:47:00 Yes Wajeeha Henok 1 tablet [facility] Losartan Potassium 2018-06-04 03:47:00 Yes Wajeeha Henok 1 tablet [facility] Fenofibrate 2018-06-04 03:47:00 Yes Wajeeha Henok 1 tablet with a meal [facility] Omeprazole 2018-06-04 03:47:00 Yes Wajeeha Henok 1 capsule [facility] Prolia 2018-06-04 03:47:00 Yes Wajeeha Henok as directed [facility] Nisoldipine ER 2018-06-04 03:47:00 Yes Wajeeha Henok 1 tablet on an empty stomach [facility] Tylenol 2018-06-04 03:47:00 Yes Wajeeha Henok 2 tablets as needed [facility] Plaquenil 2018-06-04 03:47:00 Yes Wajeeha Henok 1 tablet with food or milk [facility] Tramadol HCl 2018-01-21 00:00:00 Yes Naida Bakerace 1 tablet as needed [facility] Pravastatin Sodium 2017-11-24 02:46:39 Yes Naida Bakerace 1 tablet [facility] Vitamin D 2017-11-24 02:46:39 Yes Naida Shields 1 capsule [facility] Plaquenil 2017-11-21 00:00:00 Yes Naiad Shields 1 tablet with food or milk [facility] Diclofenac Sodium 2017-11-21 00:00:00 Yes Nevaeh Lewissaf 4 grams [facility] Celecoxib 2017-08-14 03:46:39 Yes Latifa Fakoya 1 capsule [facility] Vitamin D 2017-05-26 02:46:48 Yes Naida Shields 2 tablets [facility] Synvisc One 2017-05-24 00:00:00 Yes Naida Shields 1 [facility] Vitamin D 2017-05-24 00:00:00 Yes Naida Shields 1 capsule [facility] Celecoxib 2017-03-29 00:00:00 Yes Naida Shields 1 capsule [facility] Vital Signs Vital Name Observation Time Observation Value Comments Source Weight 2018-05-24 16:00:00 [facility] Height 2018-05-24 16:00:00 [facility] Temperature Oral (F) 2018-05-24 16:00:00 98.7 F [facility] Heart Rate 2018-05-24 16:00:00 [facility] Diastolic (mm Hg) 2018-05-24 16:00:00 [facility] Systolic (mm Hg) 2018-05-24 16:00:00 Constantin [facility]el [facility] Weight 2018-01-21 15:00:00 [facility] Height 2018-01-21 15:00:00 [facility] Temperature Oral (F) 2018-01-21 15:00:00 98.7 F [facility] Heart Rate 2018-01-21 15:00:00 [facility] Diastolic (mm Hg) 2018-01-21 15:00:00 [facility] Systolic (mm Hg) 2018-01-21 15:00:00 Constantin [facility] Weight 2017-11-21 13:30:00 [facility] Height 2017-11-21 13:30:00 [facility] Temperature Oral (F) 2017-11-21 13:30:00 98.0 F [facility] Heart Rate 2017-11-21 13:30:00 [facility] Diastolic (mm Hg) 2017-11-21 13:30:00 [facility] Systolic (mm Hg) 2017-11-21 13:30:00 Constantin [facility] Weight 2017-08-09 19:30:00 [facility] Height 2017-08-09 19:30:00 [facility] Temperature Oral (F) 2017-08-09 19:30:00 98.5 F [facility] Heart Rate 2017-08-09 19:30:00 [facility] Diastolic (mm Hg) 2017-08-09 19:30:00 [facility] Systolic (mm Hg) 2017-08-09 19:30:00 Constantin [facility] Weight 2017-05-24 13:30:00 [facility] Height 2017-05-24 13:30:00 [facility] Temperature Oral (F) 2017-05-24 13:30:00 98.7 F [facility] Heart Rate 2017-05-24 13:30:00 [facility] Diastolic (mm Hg) 2017-05-24 13:30:00 [facility] Systolic (mm Hg) 2017-05-24 13:30:00 Constantin [facility] Procedures This patient has no known procedures. Encounters Start Date/Time End Date/Time Encounter Type Admission Type [facility] Care Department Encounter ID Source 2020-04-06 11:07:21 Inpatient [facility] 2018-11-20 09:40:00 2018-11-20 09:40:00 Outpatient Stephen Rangel MD [place] [id number] 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 MD 2018-11-04 10:32:00 2018-11-04 10:32:00 Outpatient Stephen Rangel MD [place] [id number] 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 MD 2018-06-24 09:33:00 2018-06-24 09:33:00 Outpatient LINDA RANGEL [id number] 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 MD 2018-05-24 10:00:00 2018-05-24 10:00:00 Outpatient Stephen Rangel MD PA [id number] 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 MD 2018-01-21 10:00:00 2018-01-21 10:00:00 Outpatient Stephen Rangel MD PA [id number] 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 MD 2018-01-18 09:48:00 2018-01-18 09:48:00 Outpatient Stephen Rangel MD PA [id number] 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 MD 2017-11-21 08:30:00 2017-11-21 08:30:00 Outpatient Stephen Rangel MD PA [id number] 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 MD 2017-11-05 16:59:00 2017-11-05 16:59:00 Outpatient Stephen Rangel MD PA [id number] 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 MD 2017-08-09 13:30:00 2017-08-09 13:30:00 Outpatient Stephen Rangel MD PA [id number] 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 MD 2017-05-24 10:08:00 2017-05-24 10:08:00 Outpatient Stephen Rangel MD PA [id number] 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 MD 2017-05-24 08:30:00 2017-05-24 08:30:00 Outpatient Stephen Rangel MD [place] [id number] 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 MD Results Test Description Test Time Test Comments Results Result Comments Source CT BRAIN WO 2020-06-04 19:45:00 [facility] 1945 Sex: F [place] [address] Patient Name: LAURIE PEREZ MR #: [id number] : 1945 Age/[facility]: 74[id number] Req #: [id number] Adm Physician: Ordered by: ARASELI ISAAC DO Report #: [id number] Location: ER Room/Bed: Procedure: [id number] CT/CT BRAIN WO Exam Date: 06/04/20 Exam Time: 1900 REPORT STATUS: Signed EXAMINATION: Head CT without contrast. HISTORY:Weakness. COMPARISON:None. TECHNIQUE: Multidetector axial images were obtained from the foramen magnum to the vertex without contrast. The images were reconstructed using brain and bone algorithms. Thin section brain images were reformatted into coronal and sagittal planes. Dose modulation, iterative reconstruction, and/or weight based adjustment of the mA/kV was utilized to reduce the radiation dose to as low as reasonably achievable. Intravenous contrast: None IMAGE QUALITY: Acceptable. FINDINGS: Skull/scalp: Nonspecific focal 7 mm lytic lesion in right paramedian occipital calvarium. Parenchyma: Nonspecific bilateral frontoparietal patchy white matter hypodensity are likely related to small vessel ischemic changes. Dystrophic calcification in left lentiform nucleus represents sequel a of prior infection/inflammation or trauma. No acute hemorrhage, mass or acute major vascular territorial infarct. Arteries: No density suggestive of thrombosis. Atherosclerotic calcification in bilateral carotid siphon. Dural sinuses: No abnormal density suggestive of thrombosis. Ventricles: Mild compensated dilatation due to volume loss. No hydrocephalus. Extra-axial spaces: No abnormal density. Brain volume: Moderate generalized, predominantly bilateral frontal volume loss. Craniocervical junction: No mass, Chiari malformation, or basilar invagination. Sella: No mass. Paranasal/mastoid sinuses: 7 mm exophytic sinolith/osteoma in left frontal sinus. IMPRESSION: No acute intracranial abnormality. Moderate supratentorial white matter microvascular ischemic changes. Moderate predominantly bifrontal cerebral volume loss. Signed by: Dr. Rosalie Anaya M.D. on 06/04/2020 7:50 PM Dictated By: ROSALIE ANAYA MD 49 Transcribed By: TALIA on 06/04/201949 COPY TO: ARASELI ISAAC DO CHEST SINGLE (PORTABLE) 2020-06-04 19:19:00 [facility] 1945 Sex: F [place] [address] Patient Name: LAURIE PEREZ MR #: [id number] : 1945 Age/Sex: 74/F Req #: [id number] Adm Physician: Ordered by: ARASELI ISAAC DO Report #: [id number] Location: ER Room/Bed: Procedure: [id number] DX/CHEST SINGLE (PORTABLE) Exam Date: 06/04/20 Exam Time: 1904 REPORT STATUS: Signed EXAMINATION: CHEST SINGLE (PORTABLE) INDICATION: Chest pain/pressure. COMPARISON: None FINDINGS: TUBES and LINES: None. LUNGS: Lungs are well inflated. Lungs are clear. There is minimal bilateral prominence of the central pulmonary vasculature, consistent with pulmonary venous congestion. PLEURA: No pleural effusion or pneumothorax. HEART AND MEDIASTINUM: Cardiac size is moderately enlarged. There are atherosclerotic calcifications within the aorta. Diffuse consolidation of the trachea. BONES AND SOFT TISSUES: No acute osseous lesion. Soft tissues are unremarkable. UPPER ABDOMEN: No free air under the diaphragm. IMPRESSION: Moderate cardiomegaly. Mild bilateral pulmonary venous congestion. Signed by: Dr. Del Coronado M.D. on 06/04/2020 7:21 PM Dictated By: LEE CORONADO MD, MD 20 Transcribed By: TALIA on 06/04/201920 COPY TO: ARASELI ISAAC DO - CT ABD PELVIS W WO CONT 2019-01-17 11:14:00 Name: LAURIE PEREZ [facility] : 1945 Age/S: 73 / F [address] [facility] Unit #: [id number] Loc: [place] [address] Phys: Arash Cano MD Acct: [id number] Dis Date: Status: REG CLI PHONE #: [phone] Exam Date: 01/17/2019 1004 FAX #: [phone] Reason: RENAL MASS EXAMS: CPT CODE: [id number] CT ABD PELVIS W WO CONT 89325 HISTORY: Renal mass. COMPARISON: Ultrasound from November 15, 2018. CT abdomen and pelvis with and without contrast: Renal mass protocol: 100 mL of Isovue-370. Automated exposure control. CT ABDOMEN: The lung bases are clear. No lesions. The liver is enhancing homogeneously. No mass. The liver is measuring 17.7 cm in length. Main portal vein and hepatic artery are patent. Gallbladder is without radiopaque stones. Unremarkable spleen. The stomach distends incompletely however it is normal in appearance. The pancreas enhances homogeneously with unremarkable adrenals. Kidneys are free from hydroureteronephrosis with homogeneous enhancement. Bilateral excretion is noted as well. No calyceal stones on the precontrast sequence. Low-attenuation lesion in the left lateral interpolar region posterolaterally noted again measuring 1 cm. Average Hounsfield unit measurement ranging up to 26 is classified as Bosniak 2 lesion. Subcentimeter lesion is well in the posterior left upper pole is too small to characterize. No pathologic adenopathy. Well-opacified abdominal and pelvic vasculature. Mild atherosclerotic change. No bowel obstruction or colitis or diverticulitis or enteritis. Constipation. CT PELVIS: Normal appendix. Pelvic bowel loops are unobstructed. Unremarkable well-distended urinary bladder. The uterus is unremarkable. Ovaries are poorly visible. Small cyst measuring 1.7 cm within the right ovary which is unusual for patient's age with average Hounsfield unit measurement of 17. No pelvic pathologic adenopathy. No PAGE 1 Signed Report (CONTINUED) Name: LAURIE PEREZ [facility] : 1945 Age/S: 73 / F [address] [facility]: [id number] Loc: [place] [address] Phys: Arash Cano MD Acct: [id number] Dis Date: Status: REG CLI PHONE #: [phone] Exam Date: 1004 FAX #: [phone] Reason: RENAL MASS EXAMS: CPT CODE: [id number] CT ABD PELVIS W WO CONT 82750 <Continued> free fluid or free air or abscess. The subcutaneous tissues and the musculature are normal in appearance. No lytic or blastic lesions are noted within the bony skeleton. DJD. IMPRESSION: 1 cm Bosniak 2 lesion in the posterior left interpolar region as seen on the previous ultrasound with average Hounsfield unit measurement ranging up to 26. Subcentimeter lesion in the posterior left upper pole is too small to characterize. No hydroureteronephrosis with homogeneous enhancement and excretion. No calyceal stones. Unremarkable urinary bladder. at 1114 Reported and signed by: Jorge Mane M.D. CC: Arash Cano M.D. Technologist:Brian Smart RT(R),(MR),(CT) CTDI: DLP: Trnscb Date/Time: 01/17/2019 (1114) [email or web address] Orig Print D/T: S: 01/17/2019 (9280) PAGE 2 Signed Report CREATININE W ESTIMATED GFR 2019-01-17 09:08:00 Test Item BEDSIDE CREATININE (test code = CREATBED) mg/dL 0.7-1.3 L GLOMERULAR FILTRATION RATE POC (test code = GFRBED) 96 >6 0 H CREATININE W ESTIMATED [id number] 09:08:00* Test Item Value Reference Range Interpretation Comments BEDSIDE CREATININE (test code = CREATBED) 0.61 mg/dL 0.7-1.3 L GLOMERULAR FILTRATION RATE POC (test code = GFRBED) > 60 >6 0 H Previously reported result: 96 Edited by: KEITH on 01/17/19:70913601/17/19 0908: GFRBED previously reported as: 96 H - US ABDOMEN [id number] 11:04:00 Name: LAURIE PEREZ [facility] : 1945 Age/S: 73 / F [address] Unit #: [id number] Loc: [place] [address] Phys: James Ashley MD Acct: [id number] Dis Date: Status: REG CLI PHONE #: [phone] Exam Date: 11/15/2018 1033 FAX #: [phone] Reason: 789.06,R10.13,R11.0,250.00,401.9,I10 EXAMS: CPT CODE: [id number] US ABDOMEN COMPLETE 92474 HISTORY: Epigastric pain. COMPARISON: Renal ultrasound from June 21, 2016. Liver is normal in echogenicity and texture without parenchymal mass or lesions. The liver measured 14.5 cm in length. No intra or extrahepatic biliary ductal dilatation. CBD is normal at 3.2 mm. Main portal vein is patent with hepatopedal flow and normal spectral waveform. Gallbladder is without gallstones. No pericholecystic fluid or wall thi ckening. No ascites. Kidneys are free from hydronephrosis and ileana ceal stones. Normal echogenicity and texture. Right kidney measured 11.6 c m in length. Left kidney measured 10.4 cm in length. Hypoechoic solid nodu le in the interpolar region anteriorly measuring 1 cm. This is new from pr evious exam. Correlate with CT scan with contrast for further charac terization and evaluation. Visualized spleen is unremarkable at 9. 1 cm in length. Visualized portions of the IVC, aorta and pancreas are nor mal however imaged incompletely. IMPRESSION: No gallstones. Unremarkable liver and spleen. Kidneys are free from hydronephrosis with 1 cm solid lesion in the anterior interpolar region on the left which is new from previous exam. Correlate with postcontrast CT scan if clinically feasible or noncontrast MRI scan if renal insuff iciency does not permit postcontrast study. at 1104 Reported and si gned by: Jorge Mane M.D. CC: James Ashley MD Technologist: ANGE MCDOWELL(R),JULIA [facility] Date/Time: 11/15/2018 (3627) [email or web address] PAGE 1 Signed Report - HEPA IMAG INCL GB W [id number] 12:49:00 FAX: James Cavazos [phone] [place]: St: REG Name: LAURIE LINDQUIST [facility] : [birth year] Age/S: 73/F [address] [facility] Unit #: [id number] Loc: [place] [address] Phys: James Ashley MD Acct: [id number] Dis Date: Status: REG CLI PHONE #: [phone] Exam Date: 11/08/2018 1045 FAX #: [phone] Reason: R11.0,250.00,I10,401.9,787.02 EXAMS: CPT CODE: [id number] HEPA IMAG INCL GB W PHA 36139 HISTORY: Epigastric pain. COMPARISON: None available. HIDA scan: 5.3 mCi of technetium 99m Choletec and 1.2 mcg of CCK. Sequential images obtained. Homogeneous uptake within the liver. Excretion into the biliary system as well as into the gallbladder and small bowel. Ejection fraction calculated to 9% at 17 1/2 minutes. The normal should be greater than 35%. IMPRESSION: Markedly depressed ejection fract ion of 9% at 17 1/2 minutes may suggest chronic gallbladder dysmotility and/or biliary dyskinesia. at 3532 Reported and signed by: Jorge robles M.D. CC: James Ashley MD Technologist: COLLEEN MONTGOMERY Trnscrd Date/Time/By: 11/08/2018 (0421) : By: [email or web address] Orig Print D /T: S: 11/08/2018 (2815) PAGE 1 S igned Report
[2020-06-04] MEDS ORDERED: ASPIRIN 81 MG CHEW TAB PO ONE (22:15)
--- OUTSIDE RECORDS SUMMARY | 2020-06-04 22:31 | XMS REPORT | Continuity of Care Document ---
Author Author [facility] [employer] Address Unknown Phone Unavailable Care Team Providers Care Charge Authorizer Name Role Phone [employer] [facility] Unavailable Un available Problems Problem Status Onset Date Classification Date Reported Comments Source Polyarthritis Active Problem 04/16/2019 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 Long-term use of high-risk medication Active Problem 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 Osteoporosis Active Problem 04/16/2019 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 Vitamin D deficiency Active Problem 04/16/2019 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 Shoulder pain, right Active Problem 04/16/2019 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 Wheezing Active Problem 04/16/2019 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-steroidal anti-inflammatories (NSAID) Active [...] MG/6ML Intra-articul ar one injecition Shields 05/24/2017 Ubran Rangel Vitamin D 1 capsule Orally Active 34385 U Orally Once a w poarch Shields 05/24/2017 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 Celecoxib 1 capsule Orally Active 100 MG Orally Twice a d ay Shields 03/29/2017 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 Metoprolol Succinate as direct ed Orally Active 100 MG Orally Henok 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 Celecoxib 1 capsule Orally Active 100 MG Orally Twice a d ay Fakoya Urban aRngel GlipiZIDE XL 1 tablet Orally Active 5 MG Orally Once a day Henok Ward Rangel Pravastatin Sodium 1 tablet Orally Active 40 MG Orally Once a day Cornelius Rangel Vitamin D 1 capsule Orally Active 12493 U Orally Once a w poarch Cornelius Rangel Losartan Potassium 1 tablet Orally [...]
--- OUTSIDE RECORDS SUMMARY | 2020-06-04 22:31 | XMS REPORT | Continuity of Care Document ---
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 N.Musa Active Info Not Available 2018-05-24 00:00:00 [facility] Medications Ordered Medication Name Filled Medication Name Start Date Stop Da te Current Medication? Ordering Clinician Indication Dosage Frequency Signature (SIG) Comments Components Source Tramadol 2018-06-25 03:46:48 Yes Naida Shields o ne tab [facility] Metoprolol Succinate 2018-06-04 03:47:00 Yes Wajeeha You saf as directed [facility] GlipiZIDE XL 2018-06-04 03:47:00 Yes Wajeeha Henok 1 tablet [facility] Losartan Potassium 2018-06-04 03:47:00 Yes Wajeeha Henok 1 tablet [facility] Fenofibrate 2018-06-04 03:47:00 Yes Wajeeha Henok 1 tablet with a meal [facility] Omeprazole 2018-06-04 03:47:00 Yes Wajeeha Henok 1 capsule [facility] Prolia 2018-06-04 03:47:00 Yes Wajeeha Henok as directed [facility] Nisoldipine ER 2018-06-04 03:47:00 Yes Wajeeha Henok 1 tablet on an empty stomach [facility] Tylenol 2018-06-04 03:47:00 Yes Wajeeha Henok 2 tablets as needed [facility] Plaquenil 2018-06-04 03:47:00 Yes Wajeeha Henok 1 tablet with food or milk [facility] Tramadol HCl 2018-01-21 00:00:00 Yes Naida Bakerace 1 tablet as needed [facility] Pravastatin Sodium 2017-11-24 02:46:39 Yes Naida Bakerace 1 tablet [facility] Vitamin D 2017-11-24 02:46:39 Yes Naida Shields 1 capsule [facility] Plaquenil 2017-11-21 00:00:00 Yes Naida Shields 1 tablet with food or milk [facility] Diclofenac Sodium 2017-11-21 00:00:00 Yes Nevaeh Lewissaf 4 grams [facility] Celecoxib 2017-08-14 03:46:39 Yes Latifa Fakoya 1 capsule [facility] Vitamin D 2017-05-26 02:46:48 Yes Naida Shields 2 tablets [facility] Synvisc One 2017-05-24 00:00:00 Yes Naida Shields 1 [facility] Vitamin D 2017-05-24 00:00:00 Yes Naida Shields 1 capsule [facility] Celecoxib 2017-03-29 00:00:00 Yes Naida Shields 1 capsule [facility] Vital Signs Vital Name Observation Time Observation Value Comments Source Weight 2018-05-24 16:00:00 [facility] Height 2018-05-24 16:00:00 [facility] Temperature Oral (F) 2018-05-24 16:00:00 98.7 F [facility] Heart Rate 2018-05-24 16:00:00 [facility] Diastolic (mm Hg) 2018-05-24 16:00:00 [facility] Systolic (mm Hg) 2018-05-24 16:00:00 Constantin keel [facility] Weight 2018-01-21 15:00:00 [facility] Height 2018-01-21 15:00:00 [facility] Temperature Oral (F) 2018-01-21 15:00:00 98.7 F [facility] Heart Rate 2018-01-21 15:00:00 [facility] Diastolic (mm Hg) 2018-01-21 15:00:00 [facility] Systolic (mm Hg) 2018-01-21 15:00:00 Constantin [facility] Weight 2017-11-21 13:30:00 [facility] Height 2017-11-21 13:30:00 [facility] Temperature Oral (F) 2017-11-21 13:30:00 98.0 F [facility] Heart Rate 2017-11-21 13:30:00 [facility] Diastolic (mm Hg) 2017-11-21 13:30:00 [facility] Systolic (mm Hg) 2017-11-21 13:30:00 Constantin [facility] Weight 2017-08-09 19:30:00 [facility] Height 2017-08-09 19:30:00 [facility] Temperature Oral (F) 2017-08-09 19:30:00 98.5 F [facility] Heart Rate 2017-08-09 19:30:00 [facility] Diastolic (mm Hg) 2017-08-09 19:30:00 [facility] Systolic (mm Hg) 2017-08-09 19:30:00 Constantin [facility] [address] Weight 2017-05-24 13:30:00 [facility] Height 2017-05-24 13:30:00 [facility] Temperature Oral (F) 2017-05-24 13:30:00 98.7 F [facility] Heart Rate 2017-05-24 13:30:00 [facility] Diastolic (mm Hg) 2017-05-24 13:30:00 [facility] Systolic (mm Hg) 2017-05-24 13:30:00 Constantin [facility] [address] Procedures This patient has no known procedures. Encounters Start Date/Time End Date/Time Encounter Type [facility] Encounter ID Source 2020-04-06 11:07:21 [facility] 2018-11-20 09:40:00 2018-11-20 09:40:00 Outpatient Stephen Rangel MD [place] [id number] 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 MD 2018-11-04 10:32:00 2018-11-04 10:32:00 Outpatient Stephen Rangel MD [place] [id number] 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 MD 2018-06-24 09:33:00 2018-06-24 09:33:00 Outpatient LINDA RANGEL [id number] 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 MD 2018-05-24 10:00:00 2018-05-24 10:00:00 Outpatient Stephen Rangel MD [place] [id number] Urban aRngel MD 2018-01-21 10:00:00 2018-01-21 10:00:00 [place] [id number] 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 MD 2018-01-18 09:48:00 2018-01-18 09:48:00 Outpatient Stephen Rangel MD PA [id number] 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 MD 2017-11-21 08:30:00 2017-11-21 08:30:00 Outpatient Stephen Rangel MD PA [id number] 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 MD 2017-11-05 16:59:00 2017-11-05 16:59:00 Outpatient Stephen Rangel MD PA [id number] 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 MD 2017-08-09 13:30:00 2017-08-09 13:30:00 Outpatient Stephen Rangel MD [place] [id number] 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 MD 2017-05-24 10:08:00 2017-05-24 10:08:00 Outpatient Stephen Rangel MD PA [id number] 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 MD 2017-05-24 08:30:00 2017-05-24 08:30:00 Outpatient Stephen Rangel MD [place] [id number] 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 MD Results Test Description Test Time Test Comments Results Result Comments Source CT BRAIN WO 2020-06-04 19:45:00 [facility] 1945 Sex: F [place] [address] Patient Name: LAURIE PEREZ MR #: [id number] : 1945 [facility] 74[id number] Req #: [id number] Adm Physician: Ordered by: ARASELI ISAAC DO Report #: [id number] Location: ER Room/Bed: Procedure: [id number] CT/CT BRAIN WO Exam Date: 06/04/20 Exam [...] DO CHEST SINGLE (PORTABLE) 2020-06-04 19:19:00 [facility] 1945 Sex: F [place] [address] Patient Name: LAURIE PEREZ MR #: [id number] : 1945 Age/Sex: 74/F Req #: [id number] Adm Physician: Ordered by: ARASELI ISAAC DO Report #: [id number] Location: ER Room/Bed: Procedure: [id number] DX/CHEST SINGLE (PORTABLE) Exam Date: 06/04/20 Exam [...] By: TALIA on 06/04/201920 COPY TO: ARASELI SIAAC DO - CT ABD PELVIS W WO CONT 2019-01-17 11:14:00 Name: LAURIE PEREZ [facility] : 1945 Age/S: 73 / F [address] [facility] Unit #: [id number] Loc: [place] [address] Phys: Arash Cano MD Acct: [id number] Dis Date: Status: REG CLI PHONE #: [phone] Exam Date: 01/17/2019 1004 FAX #: [phone] Reason: RENAL MASS EXAMS: CPT CODE: [id number] CT ABD PELVIS W WO CONT 09428 HISTORY: Renal mass. COMPARISON: Ultrasound from November [...] 1 Signed Report (CONTINUED) Name: LAURIE PEREZ [facility] : 1945 Age/S: 73 / F [address] [facility] [id number] Loc: [place] [address] Phys: Arash Cano MD Acct: [id number] Dis Date: Status: REG CLI PHONE #: [phone] Exam Date: 1004 FAX #: [phone] Reason: RENAL MASS EXAMS: CPT CODE: [id number] CT ABD PELVIS W WO CONT 48096 <Continued> free fluid or free air or [...] (1114) [email or web address] Orig Print D/T: S: 01/17/2019 (5260) PAGE 2 Signed Report CREATININE W ESTIMATED GFR 2019-01-17 09:08:00 Test Item BEDSIDE CREATININE (test code = CREATBED) mg/dL 0.7-1.3 L GLOMERULAR FILTRATION RATE POC (test code = GFRBED) 96 >6 0 H CREATININE W ESTIMATED [id number] 09:08:00* Test Item Value Reference Range Interpretation Comments BEDSIDE CREATININE (test code = CREATBED) 0.61 mg/dL 0.7-1.3 L GLOMERULAR FILTRATION RATE POC (test code = GFRBED) > 60 >6 0 H Previously reported result: 96 Edited by: KEITH on 01/17/19:46897001/17/19 0908: GFRBED previously reported as: 96 H - US ABDOMEN [id number] 11:04:00 Name: LUARIE PEREZ [facility] : 1945 Age/S: 73 / F [address] Unit #: [id number] Loc: [place] [address] Phys: James Ashley MD Acct: [id number] Dis Date: Status: REG CLI PHONE #: [phone] Exam Date: 11/15/2018 1033 FAX #: [phone] Reason: 789.06,R10.13,R11.0,250.00,401.9,I10 EXAMS: CPT CODE: [id number] US ABDOMEN COMPLETE 05828 HISTORY: Epigastric pain. COMPARISON: Renal ultrasound from [...] CC: James Ashley MD Technologist: ANGE MCDOWELL(R),JULIA [facility] Date/Time: 11/15/2018 (4719) [email or web address] PAGE 1 Signed Report - HEPA IMAG INCL GB W [id number] 12:49:00 FAX: James Cavazos [phone] [place]: St: REG Name: LAURIE LINDQUIST [facility] : [birth year] Age/S: 73/F [address] [facility] Unit #: [id number] Loc: [place] [address] Phys: James Ashley MD Acct: [id number] Dis Date: Status: REG CLI PHONE #: [phone] Exam Date: 11/08/2018 1045 FAX #: [phone] Reason: R11.0,250.00,I10,401.9,787.02 EXAMS: CPT CODE: [id number] HEPA IMAG INCL GB W PHA 53082 HISTORY: Epigastric pain. COMPARISON: None available. HIDA [...] chronic gallbladder dysmotility and/or biliary dyskinesia. at 6333 Reported and signed by: Jorge robles M.D. CC: James Ashley MD Technologist: COLLEEN MONTGOMERY Trnscrd Date/Time/By: 11/08/2018 (9050) : By: [email or web address] Orig Print D /T: S: 11/08/2018 (0076) PAGE 1 S igned Report
--- NOTE | 2020-06-04 22:53 | Diagnostic Imaging Report ---
EXAM: CT Chest WITH contrast (PE Protocol) INDICATION: ^chest pain COMPARISON: None TECHNIQUE: Chest was scanned utilizing a multidetector helical scanner from the lung apex through the level of the diaphragm after administration of IV contrast. Thin section reconstructions were obtained with special concentration on the pulmonary arteries. Coronal and sagittal reformations were obtained. Pulmonary embolism protocol was performed. IV CONTRAST: 100 mL of Isovue 370 COMPLICATIONS: None RADIATION DOSE: Total DLP: 465 mGy*cm Estimated effective dose: (DLP x 0.014 x size factor) mSv CTDIvol has been reviewed. It is below the limits set by the Radiation Protocol Committee (RPC). Dose modulation, iterative reconstruction, and/or weight based adjustment of the mA/kV was utilized to reduce the radiation dose to as low as reasonably achievable. FINDINGS: LINES/ TUBES: None. LUNGS AND AIRWAYS: No filling defect is identified within the pulmonary arteries to the segmental level. The lungs are unremarkable. Airways are normal. PLEURA: The pleural spaces are clear. HEART AND MEDIASTINUM: The thyroid gland is normal. No mediastinal, hilar or axillary lymphadenopathy. The heart is mildly enlarged. There is no pericardial effusion. . Main pulmonary artery measures 3.2 cm in diameter, slightly dilated, and the ascending aorta measures 3.2 cm.Triple vessel coronary artery calcific atherosclerosis. Aortic calcifications. UPPER ABDOMEN: Subcentimeter exophytic hypodensity along the left kidney is likely benign. Colonic diverticuli. BONES: The visualized bony thorax is within normal limits. Degenerative changes. SOFT TISSUES: Unremarkable. IMPRESSION: No pulmonary emboli. Mild cardiomegaly, triple vessel coronary artery calcific atherosclerosis, and evidence of pulmonary hypertension. Signed by: Speedy Sheikh DO on 06/04/2020 10:50 PM
[2020-06-05] VITALS (10 sets, daily range): BP systolic 149–179; BP diastolic 52–87
[2020-06-05] MEDS ORDERED: LOSARTAN/HCTZ PO (00:57)
[2020-06-05] MEDS ORDERED: DOXAZOSIN MESYLA1 MG PO (00:57)
[2020-06-05] MEDS ORDERED: METOPROLOL SUCC50 MG PO (00:57)
[2020-06-05] MEDS ORDERED: OMEPRAZOLE40 MG PO (01:00)
[2020-06-05 02:59] LABS: BASOPHILS % 0.3 % (0.0-1.0); EOSINOPHILS # (AUTO) 0.2 (0.0-0.4); EOSINOPHILS % 3.5 % (0.0-6.0); HEMATOCRIT 32.9 % (34.2-44.1); HEMOGLOBIN 10.1 g/dL (12.0-16.0); LYMPHOCYTES # (AUTO) 1.8 (1.0-3.2); LYMPHOCYTES % 27.5 % (18.0-39.1); MEAN CORPUSCULAR HEMOGLOBIN 26.9 pg (28-32); MEAN CORPUSCULAR HGB CONC 30.7 g/dL (31-35); MEAN CORPUSCULAR VOLUME 87.5 fL (81-99); MONOCYTES # (AUTO) 0.6 (0.2-0.8); MONOCYTES % 8.3 % (4.4-11.3); NEUTROPHILS # (AUTO) 3.9 (2.1-6.9); NEUTROPHILS % 58.9 % (38.7-80.0); PLATELET COUNT 342 x10e3/uL (140-360); RED BLOOD COUNT 3.76 x10e6/uL (3.6-5.1); RED CELL DISTRIBUTION WIDTH 15.9 % (11.7-14.4)
[2020-06-05 03:19] LABS: CREATINE KINASE MB 0.8 ng/mL (0-5.0)
[2020-06-05 03:31] LABS: ALANINE AMINOTRANSFERASE 7 IU/L (0-55); ALBUMIN/GLOBULIN RATIO 0.9 (0.8-2.0); ALKALINE PHOSPHATASE 50 IU/L (40-150); ANION GAP 12.8 mmol/L (8-16); BLOOD UREA NITROGEN 12 mg/dL (7-26); BUN/CREATININE RATIO 17 (6-25); CALCIUM 9.2 mg/dL (8.4-10.2); CARBON DIOXIDE 26 mmol/L (22-29); CHLORIDE 106 mmol/L (98-107); EST GLOMERULAR FILTRATION RATE > 60 ML/MIN (60-); GLUCOSE 158 mg/dL (74-118); POTASSIUM 3.8 mmol/L (3.5-5.1); SODIUM 141 mmol/L (136-145)
--- NOTE | 2020-06-05 06:30 | NUR ---
PAGED DR. OLMSTEAD REGARDING CONSULT. AWAITING CALL BACK
--- NOTE | 2020-06-05 07:00 | NUR ---
BEDSIDE SHIFT REPORT FROM DESIZING MACHINE OFFBEARER RN. PT DENIES NEEDS AT THIS TIME.
[2020-06-05] MEDS: SUCRALFATE 1 GM TAB PO SCH ×3 (11:55→20:58)
[2020-06-05] MEDS: OMEPRAZOLE 20 MG CAP PO SCH ×2 (11:55→16:20)
[2020-06-05 14:29] LABS: CREATINE KINASE MB 0.6 ng/mL (0-5.0)
--- NOTE | 2020-06-05 20:07 | NUR ---
Current medications [Iron Pill] No Conflict Check, 325 10/08/18 Cholecalciferol (Vitamin D3) (DECARA) 25,000 Unit Capsule, 83485 10/08/18 Nifedipine (NIFEDIPINE ER) 30 Mg Tablet.er 10/08/18 Loratadine (LORATADINE) 10 Mg Tablet, 10 MG PO DAILY, #30 TAB 10/08/18 Fenofibrate Nanocrystallized (FENOFIBRATE) 145 Mg Tablet, 160 10/08/18 Losartan Potassium (LOSARTAN POTASSIUM) 100 Mg Tablet, 120 MG PO DAILY, TAB 10/08/18 Omeprazole (OMEPRAZOLE) 40 Mg Capsule.dr 10/08/18 Metoprolol Succinate (METOPROLOL SUCCINATE) 50 Mg Tab.er.24h, 100 MG PO DAILY, MG 10/08/18 Meloxicam (MELOXICAM) 7.5 Mg Tablet, 15 MG PO DAILY, #30 TAB 10/08/18 Glipizide (GLIPIZIDE ER) 5 Mg Tab.er.24 10/08/18
--- NOTE | 2020-06-05 20:11 | NUR ---
DR. ROBERTSON DOING ROUNDS. NEW ORDERS RECEIVED SEE LIST OF ORDERS IN EMR. CAROTID DOPPLER AND ECHO ORDERED FOR TOMORROW 06/06.
[2020-06-05] MEDS ORDERED: HYDRALAZINE HCL 20 MG/ML VIAL IV PRN (20:15)
[2020-06-05] MEDS ORDERED: DEXTROSE 50% SYRINGE 50 ML IV PRN (20:15)
[2020-06-05] MEDS: INSULIN REGULAR, HUMAN 100 UNIT/1 ML 3ML VIAL SQ SCH (20:57)
--- NOTE | 2020-06-05 22:19 | NUR ---
SPOKE TO DR. ROBERTSON REGARDING PATIENT COMPLAIN OF ANXIETY AND DIFFICULTY SLEEPING. NEW ORDER RECEIVED FOR TRAZODONE 25MG PO HS PRN.
--- NOTE | 2020-06-05 23:04 | History and Physical ---
The patient was seen and evaluated in the emergency department on 06/04/2020. CHIEF COMPLAINT: Syncopal spell. HISTORY OF PRESENT ILLNESS: A 74-year-old lady who presented to the emergency room department with a history of having a fall and the patient was found by family members and apparently was not responsive. However, she quickly recovered and was brought by EMS. When arriving the patient to the emergency room department, she was feeling fine. She was not having slurred speech and there was no history of having focal weakness, no history of loss of bowel or bladder control or history suggestive of convulsions. The patient stated that she was feeling anxious. The patient recently underwent replacement of her right knee. She states that her balance has been steady. She denies having fever or chills. She denies any history of abdominal pain. No nausea, no vomiting. She stated that she has been referred to Dr. JOSEPH evaluation regarding some history of loss of weight. There is no history of GI bleeding. EKG demonstrates sinus bradycardia. Nonspecific EKG findings. Cardiac enzymes were negative. The patient on admission was noted to have a blood pressure of 175/105 at 18:50 on June 04, respirations 18, pulse 82, and temperature 98.1. PAST MEDICAL HISTORY: She is known to have a history of hypertension. She does have a history of diabetes mellitus type 2. There is no history of myocardial infarction. No CVA. MEDICATIONS: Taken at the time of admission, 1. Vitamin D3. 2. Nifedipine ER 30 mg p.o. daily. 3. Loratadine 10 mg p.o. daily. 4. Fenofibrate 145 mg p.o. daily. 5. Losartan potassium 100 mg p.o. daily. 6. Omeprazole 40 mg p.o. daily. 7. Metoprolol succinate 100 mg p.o. daily. 8. Glipizide ER 5 mg p.o. daily. FAMILY HISTORY: Noncontributory. SOCIAL HISTORY: No tobacco. No alcohol abuse. ALLERGIES: NO KNOWN DRUG ALLERGIES THAT I AM AWARE. REVIEW OF SYSTEMS: CONSTITUTIONAL: No fever, chills. CARDIOVASCULAR: anxiety, could not pinpoint. Whether she was having discomfort in the chest and this is unclear. There is no swelling of the legs. RESPIRATORY: No cough. No hemoptysis. No shortness of breath. GI: No nausea or vomiting. No diarrhea. No hematochezia or melena. GENITOURINARY: No dysuria, hematuria, or frequency. NEUROLOGIC: No focal weakness. PHYSICAL EXAMINATION: GENERAL: The patient was alert, oriented to person, time, and place. The patient was in no distress. VITAL SIGNS: Blood pressure on arrival to the hospital 175/105, respirations 18, pulse 82, and temperature 98.1. Current blood pressure 140/54, respirations 18, pulse 56, and temperature 98.3. HEENT: Head is normocephalic and atraumatic. Extraocular movements are intact. NECK: Supple. No JVD. Thyroid was not enlarged. No carotid bruit. LUNGS: Clear to auscultation. HEART: Regular rate and rhythm without murmurs or gallops. ABDOMEN: Soft, nontender. No organomegaly. EXTREMITIES: No edema. NEUROLOGIC: Nonfocal. ASSESSMENT: 1. History of syncopal spell, questionable discomfort in the chest. 2. Sinus bradycardia. 3. History of hypertension. 4. History of diabetes mellitus type 2. PLAN: The patient is admitted to telemetry. Serial cardiac enzymes were ordered. consultation. GI consultation has been requested for history of anemia and history of loss of weight. Further recommendation depending on patient's clinical course. MD ASHLEIGH Vila/ABIODUN /[id number]
[2020-06-05] MEDS: TRAZODONE HCL 50 MG TAB PO PRN (23:07)
[2020-06-06] VITALS (8 sets, daily range): BP systolic 138–166; BP diastolic 69–96
--- NOTE | 2020-06-06 07:00 | NUR ---
BEDSIDE SHIFT REPORT FROM FUR BLOWING MACHINE OPERATOR RN. PT DENIES NEEDS AT THIS TIME.
[2020-06-06] MEDS: INSULIN REGULAR, HUMAN 100 UNIT/1 ML 3ML VIAL SQ SCH ×4 (07:30→20:11)
[2020-06-06] MEDS: OMEPRAZOLE 20 MG CAP PO SCH ×2 (08:01→17:19)
[2020-06-06] MEDS: SUCRALFATE 1 GM TAB PO SCH ×4 (08:01→21:13)
[2020-06-06] MEDS: DOXAZOSIN MESYLATE 2 MG TAB PO SCH (08:01)
[2020-06-06] MEDS: HYDROCHLOROTHIAZIDE 25 MG TAB PO SCH (08:02)
[2020-06-06] MEDS: GLIPIZIDE 5 MG TAB ER PO SCH (08:02)
[2020-06-06] MEDS: LOSARTAN POTASSIUM 100 MG TAB PO SCH (08:02)
[2020-06-06] MEDS ORDERED: METOPROLOL SUCCINATE 50 MG TAB XL PO SCH (09:00)
[2020-06-06] MEDS: METOPROLOL SUCCINATE 25 MG TAB XL PO SCH (12:35)
--- NOTE | 2020-06-06 22:09 | NUR ---
SPOKE TO DR. ROBERTSON REGARDING PATIENT COMPLAIN OF HEADACHE. NEW ORDER RECEIVED FOR TYLENOL 650MG Q4H PRN.
--- NOTE | 2020-06-06 22:18 | Consultation ---
DATE OF CONSULTATION: Cardiology consultation. REASON FOR CONSULTATION: Recent syncope and chest pain. HISTORY OF PRESENT ILLNESS: Ms. Fox is a pleasant 74-year-old woman with history of hypertension and dyslipidemia who presents for evaluation of chest pressure radiating to back moderate in severity lasting a couple of days, unaffected by changes in position, inspiration, meals, or exercise without exacerbating or alleviating factors reported. She also reports fatigue with activity. She had an episode of lightheadedness and reported fainting at the time per family report, she was hypoglycemic. This was treated with symptomatic improvement. This occurred several weeks in the past and has not recurred since. On admission, she was on metoprolol 100 mg daily and she was mildly bradycardic. Beta-carolin was held overnight to assess rhythm on telemetry, which has so far revealed sinus rhythm. She has no current complaints. REVIEW OF SYSTEMS: 12-system review negative except for as noted above. PAST MEDICAL HISTORY: As per HPI. Diabetes mellitus type 2, diet controlled. SOCIAL HISTORY: No active smoking, alcohol, or drugs. FAMILY HISTORY: Noncontributory. HOME MEDICATIONS: Please see medication reconciliation form. PHYSICAL EXAMINATION: VITAL SIGNS: Temperature 97.8, heart rate 91, blood pressure 142/83, respiratory rate 18, O2 saturation 94%. GENERAL: In no acute distress. Alert. NECK: No JVD. No carotid bruits. CHEST: Clear to auscultation bilaterally. CARDIOVASCULAR: Regular rate and rhythm. Normal S1, S2. No S3 or S4. No murmurs or rubs. ABDOMEN: Soft. Bowel sounds positive. EXTREMITIES: No cyanosis, clubbing, or edema. Normothermic. SKIN: Dry, intact. PSYCH: Normal affect. CARDIOVASCULAR MEDICATIONS: Reviewed. 1. Doxazosin 1 mg daily. 2. Hydrochlorothiazide 25 mg daily. 3. Hydralazine p.r.n. 4. Losartan 100 mg daily. STUDIES: Reviewed. Echocardiogram with preserved ventricular systolic function. Mild left ventricular hypertrophy. Carotid ultrasound with mild plaque without hemodynamically significant stenosis and antegrade vertebral flow. CT chest negative for pulmonary embolism, remarkable for significant coronary calcifications, multivessel. Sodium 141, potassium 3.8, chloride 106, bicarbonate 26, BUN 12, creatinine 0.7, glucose 158. White blood cells 6.6, hemoglobin 10.1, platelets 342. AST 9, ALT 7, alkaline phosphatase 50. Total bilirubin 0.2. Cardiac enzymes, negative troponins. ASSESSMENT AND PLAN: A 74-year-old woman presents with episode of chest discomfort and noted coronary calcifications on CT chest. Previous episode of reported altered mental status/syncope in the setting of hypoglycemia. RECOMMEND: 1. Further risk stratification for coronary standpoint with stress test will be scheduled while in-house. Plan for tomorrow. 2. Initiate metoprolol 25 mg extended release daily and assess on telemetry. 3. Continue hydration p.o. and reassess orthostatics in a.m. 4. Would benefit from aspirin 81 mg daily and atorvastatin in the setting of coronary calcifications consistent with coronary artery disease. 5. Anemia workup advised. Thank you for the opportunity to participate in the care of Ms. Fox. Please call with any questions at [phone]. MD EMILY Marks/ABIODUN /[id number] MTDD
[2020-06-06] MEDS: ACETAMINOPHEN 325 MG TAB PO PRN (22:32)
[2020-06-06] MEDS: TRAZODONE HCL 50 MG TAB PO PRN (23:00)
[2020-06-06] MEDS: ASPIRIN 81 MG CHEW TAB PO SCH (23:38)
[2020-06-07 00:01] VITALS: BP 143/71
--- NOTE | 2020-06-07 01:53 | Progress Note ---
DATE: 06/06/2020 SUBJECTIVE: The patient has been doing fine. No new events. No chest pain or shortness of breath. No fever. No chills. OBJECTIVE: GENERAL: The patient has been alert, oriented to person, time, and place. VITAL SIGNS: Blood pressure 148/71, respirations 17, pulse 75, temperature is 98.4. HEENT: Head is normocephalic and atraumatic. NECK: Supple. No JVD. LUNGS: Clear to auscultation. HEART: Regular rate and rhythm. ABDOMEN: Soft, nontender. EXTREMITIES: No edema. NEURO: Nonfocal. ASSESSMENT: 1. History of syncopal spell. 2. Sinus bradycardia. 3. Hypertension. 4. Diabetes mellitus type 2. PLAN OF CARE: Request a Cardiology consultation with Dr. Garcia. Recommendations from cardiac standpoint noted. initiate metoprolol 25 mg extended release daily. Continue hydration as advised and monitor for orthostatics. Would benefit from aspirin 81 mg daily and atorvastatin in the setting of coronary calcifications consistent with coronary artery disease. Agreed with anemia workup. The patient will be followed up with GI. Cardiology. MD ASHLEIGH Vila/ABIODUN /[id number]
[2020-06-07 04:51] VITALS: BP 152/77
--- NOTE | 2020-06-07 06:10 | NUR ---
Patient off unit to OR. Vital signs stable.
[2020-06-07 06:17] LABS: CHOL/HDL RATIO 2.9 (3.0-3.6)
--- NOTE | 2020-06-07 07:00 | NUR ---
Patient is currently in procedure EGD at this time.
--- NOTE | 2020-06-07 07:27 | NUR ---
Patient is back to the room from EGD. Awake, alert and oriented x4. Denies pain. Denies nausea. Respiration even and unlabored without SOB.
[2020-06-07] MEDS: OMEPRAZOLE 20 MG CAP PO SCH ×2 (07:30→16:36)
[2020-06-07] MEDS: INSULIN REGULAR, HUMAN 100 UNIT/1 ML 3ML VIAL SQ SCH ×3 (07:30→16:39)
[2020-06-07] MEDS: SUCRALFATE 1 GM TAB PO SCH ×3 (07:30→16:36)
[2020-06-07] MEDS: DOXAZOSIN MESYLATE 2 MG TAB PO SCH ×2 (07:43→14:30)
[2020-06-07] MEDS: ASPIRIN 81 MG CHEW TAB PO SCH (07:43)
[2020-06-07] MEDS: HYDROCHLOROTHIAZIDE 25 MG TAB PO SCH ×2 (07:44→14:30)
[2020-06-07] MEDS: LOSARTAN POTASSIUM 100 MG TAB PO SCH ×2 (07:44→14:30)
[2020-06-07] MEDS: GLIPIZIDE 5 MG TAB ER PO SCH (07:45)
[2020-06-07] MEDS: METOPROLOL SUCCINATE 25 MG TAB XL PO SCH (07:45)
[2020-06-07 08:06] VITALS: BP 167/84
[2020-06-07 08:30] VITALS: BP 167/84
[2020-06-07] MEDS ORDERED: REGADENOSON 0.4 MG/5 ML SYR IV ONE (08:56)
--- NOTE | 2020-06-07 09:25 | NUR ---
Patient is transported for cardiac stress test at this time.
--- NOTE | 2020-06-07 11:21 | NUR ---
Patient is back to room from cardiac stress test. Denies pain. Respiration even and unlabored. Call light in reach.
[2020-06-07 12:04] VITALS: BP 167/76
[2020-06-07] MEDS ORDERED: ASPIRIN CHEW81 MG PO (12:21)
[2020-06-07] MEDS ORDERED: TOPROL XL25 MG PO (12:21)
[2020-06-07] MEDS ORDERED: Atorvastatin PO (12:21)
--- NOTE | 2020-06-07 13:06 | NUR ---
Spoke to Dr. Ruano regarding plan. States pt can discharge home today if stress test negative and cleared by cardio.
--- NOTE | 2020-06-07 13:52 | Operative Report ---
DATE OF PROCEDURE: 06/07/2020 SURGEON: Braxton Mixon MD PROCEDURE INDICATION: Chest pain and syncope. INTERPRETING AND SUPERVISING PHYSICIAN: Braxton Mixon MD, Interventional Cardiology. PROCEDURE PERFORMED: Lexiscan stress test with myocardial perfusion SPECT. INTERPRETATION: At rest heart rate was 72, blood pressure 167/70. Resting EKG, sinus rhythm with nonspecific repolarization abnormalities after Lexiscan was administered heart rate abimael to 106 beats per minute. Blood pressure decreased to 121/57. Occasional PVCs were observed throughout stress and was all the recovery. Myocardial perfusion reveals normal rest and stress perfusion. Gated images demonstrate preserved left ventricular systolic function, normal regional wall motion, left ventricular ejection fraction of 64%. CONCLUSION: 1. Normal hemodynamic response to Lexiscan stress. 2. Normal electrocardiographic response to Lexiscan stress. 3. Normal myocardial perfusion at rest and post stress. 4. Preserved left ventricular systolic function with LVEF 64%. Braxton Mixon MD AFV/MODL /[id number]
--- NOTE | 2020-06-07 13:52 | Progress Note ---
DATE: 06/07/2020 Cardiology Progress Note SUBJECTIVE: Ms. Fox has no recurrent complaints of chest discomfort or lightheadedness. She denies any shortness of breath or other complaints at this time. OBJECTIVE: VITAL SIGNS: Temperature 97.6, heart rate 61, blood pressure 167/84, respiratory rate 16, and O2 saturation 100%. GENERAL: In no acute distress. Alert. NECK: No JVD. CHEST: Clear to auscultation. CARDIOVASCULAR: Regular rate and rhythm. Normal S1 and S2. No S3 or S4. ABDOMEN: Soft. Bowel sounds positive. EXTREMITIES: No edema. CARDIOVASCULAR MEDICATIONS: Reviewed. Hydrochlorothiazide 25 mg daily, doxazosin 1 mg daily, aspirin 81 mg daily, losartan 100 mg daily, and metoprolol succinate 25 mg daily. STUDIES: Reviewed. Sodium 141, potassium 3.8, chloride 106, bicarbonate 26, BUN 12, creatinine 0.7, and glucose 158. White blood cell 6.6, hemoglobin 10, and platelets 342. AST 9, ALT 7, alkaline phosphatase 50, and total bilirubin 0.2. ASSESSMENT AND PLAN: A 74-year-old woman presents with chest pain, anemia, prior history of syncope, occasional premature ventricular contractions, diabetes, hypertension, dyslipidemia, coronary artery disease as noted with calcifications on coronary CT. RECOMMEND: Underwent stress test today with reassuring myocardial perfusion imaging and preserved ventricular systolic function. Aspirin 81 mg daily as well as atorvastatin 40 mg at bedtime have been initiated. Continue metoprolol for PVCs, however, lower dose done on admission given significant bradycardia upon presentation. Further dose up titration to be considered as outpatient. Outpatient followup to consider additional telemetry monitoring given her prior history of syncope and occasional PVCs observed while in-house is advised. Syncope, however, seems to have been related more to altered mental status and hypoglycemia leading to the patient's clinical presentation according to description by family members. Continue rest of cardiovascular medications for now. Okay to discharge from a cardiovascular standpoint with outpatient followup advised in 2 weeks. MD WilsonV/MODL /[id number]
[2020-06-07] MEDS: ACETAMINOPHEN 325 MG TAB PO PRN (14:35)
[2020-06-07 16:15] VITALS: BP 151/72
--- NOTE | 2020-06-07 17:46 | NUR ---
Discharge education provided and given prescription. Respiration even and unlabored without SOB. PIV to right and left FA removed, catheter intact, no bleeding noted. Transported via wheelchair to private vehicle with all personal belongings taken.
[2020-06-08] MEDS ORDERED: ATORVASTATIN 40 MG TAB PO SCH (09:00)
[2020-06-08] MEDS ORDERED: ATORVASTATIN 20 MG TAB PO SCH (09:00)
== END 2020-06-07 17:41 | disposition home or self-care (01) ==
LOC: ER 18:27 → ERHOLD 22:28 → MED/SURG 06-05 00:06
PROVIDERS: ADMIT Internal Medicine; ATTEND Internal Medicine
DX: R55 Syncope and collapse (principal); R00.1 Bradycardia, unspecified; E11.9 Type 2 diabetes mellitus without complications; Z96.651 Presence of right artificial knee joint; K21.9 Gastro-esophageal reflux disease without esophagitis; Z20.828 Contact with and (suspected) exposure to other viral communicable diseases; I25.119 Atherosclerotic heart disease of native coronary artery with unspecified angina pectoris; D64.9 Anemia, unspecified; E16.2 Hypoglycemia, unspecified; I49.3 Ventricular premature depolarization
CPT/HCPCS: 36415 ×3; 70450; 71045; 71260; 78452; 80053 ×2; 80061; 82550 ×2; 82553 ×2; 83880; 84484 ×2; 85025 ×2; 85379; 88305; 88312; 93005; 93017; 93306; 93880; 99284; A9502; G0378 ×4; J0360; J1817; J2785; U0002; 43239

== ENCOUNTER 2021-03-08 16:13 | Observation (INO) | payer MEDICARE ==
[~2021-03-08] VITALS: Ht 157.5 cm; Wt 65.8 kg
[~2021-03-08 16:13] MED LIST changes: +ASPIRIN CHEW81 MG PO; +Atorvastatin PO; +DOXAZOSIN MESYLA1 MG PO; +LOSARTAN/HCTZ PO; +OMEPRAZOLE40 MG PO; +TOPROL XL25 MG PO
[2021-03-08 17:31] LABS: EOSINOPHILS % 0.3 % (0.0-6.0); HEMATOCRIT 29.9 % (34.2-44.1); HEMOGLOBIN 9.6 g/dL (12.0-16.0); LYMPHOCYTES % 15.5 % (18.0-39.1); MEAN CORPUSCULAR HEMOGLOBIN 28.4 pg (28-32); MEAN CORPUSCULAR HGB CONC 32.1 g/dL (31-35); MEAN CORPUSCULAR VOLUME 88.5 fL (81-99); MONOCYTES # (AUTO) 0.5 (0.2-0.8); MONOCYTES % 7.1 % (4.4-11.3); NEUTROPHILS # (AUTO) 5.1 (2.1-6.9); PLATELET COUNT 206 x10e3/uL (140-360); RED BLOOD COUNT 3.38 x10e6/uL (3.6-5.1); RED CELL DISTRIBUTION WIDTH 13.5 % (11.7-14.4)
[2021-03-08 17:50] LABS: ALBUMIN 2.7 g/dL (3.5-5.0); ALBUMIN/GLOBULIN RATIO 0.7 (0.8-2.0); CALCIUM 7.8 mg/dL (8.4-10.2); CREATININE, SERUM 0.7 mg/dL (0.57-1.11)
[2021-03-08 22:36] LABS: ALBUMIN 3.1 g/dL (3.5-5.0); ALBUMIN/GLOBULIN RATIO 0.8 (0.8-2.0); ANION GAP 13.2 mmol/L (8-16); CALCIUM 8.5 mg/dL (8.4-10.2); CREATININE, SERUM 0.66 mg/dL (0.57-1.11); POTASSIUM 4.2 mmol/L (3.5-5.1)
[2021-03-08 22:57] LABS: CREATINE KINASE MB 2.6 ng/mL (0-5.0)
[2021-03-09] MEDS ORDERED: HYDRALAZINE HCL 20 MG/ML VIAL IV PRN (00:15)
[2021-03-09] MEDS ORDERED: ACETAMINOPHEN 325 MG TAB PO PRN (00:15)
[2021-03-09] MEDS ORDERED: DOCUSATE SODIUM 100 MG CAP PO PRN (00:15)
[2021-03-09] MEDS ORDERED: MELATONIN 5 MG TABLET PO PRN (00:15)
[2021-03-09] MEDS ORDERED: DIPHENHYDRAMINE HCL 25 MG CAP PO PRN (00:15)
[2021-03-09] MEDS ORDERED: POTASSIUM CHLORIDE 20 MEQ TAB CR PO PRN (00:15)
[2021-03-09] MEDS ORDERED: LIDOCAINE 4% PATCH TP PRN (00:15)
[2021-03-09] MEDS ORDERED: DEXTROSE 50% SYRINGE 50 ML IV PRN ×2 (00:15)
[2021-03-09] MEDS ORDERED: BENZONATATE 100 MG CAP PO PRN (00:15)
[2021-03-09] MEDS ORDERED: HYDROCODONE/APAP 5MG-325MG TAB PO PRN (00:15)
[2021-03-09] MEDS ORDERED: ONDANSETRON HCL INJ 2MG/ML 2ML 2 MG/ML VIAL IV PRN (00:15)
[2021-03-09] MEDS ORDERED: ALBUTEROL/IPRATROPIUM 3 ML NEB NEB PRN (00:15)
[2021-03-09] MEDS ORDERED: SIMETHICONE 80 MG CHEW PO PRN (00:15)
[2021-03-09] MEDS ORDERED: PANTOPRAZOLE SOD 40 MG TABEC PO SCH (07:30)
[2021-03-09] MEDS ORDERED: ENOXAPARIN SOD INJ 40 MG/0.4 ML SYR SC SCH (17:00)
[2021-03-09] MEDS ORDERED: ATORVASTATIN 40 MG TAB PO SCH (21:00)
== END 2021-03-09 02:00 | disposition left against medical advice (07) ==
LOC: ER 17:32 → ERHOLD 21:34 → INTOOBSV 21:34
PROVIDERS: ADMIT Internal Medicine; ATTEND Internal Medicine
DX: U07.1 COVID-19 (principal); J12.82 Pneumonia due to coronavirus disease 2019; E83.51 Hypocalcemia; I10 Essential (primary) hypertension; K29.70 Gastritis, unspecified, without bleeding; K57.90 Diverticulosis of intestine, part unspecified, without perforation or abscess without bleeding; E87.1 Hypo-osmolality and hyponatremia; R07.9 Chest pain, unspecified
CPT/HCPCS: 36415; 71045; 80053; 82550; 82553; 84484; 85025; 93005; 99284; G0378 ×2; U0002

== ENCOUNTER 2023-12-06 22:28 | Emergency (ER) | payer MEDICARE ==
[~2023-12-06] VITALS: Ht 157.5 cm; Wt 65.8 kg
[2023-12-06 23:47] LABS: BASOPHILS % 0.2 % (0.0-1.0); EOSINOPHILS # (AUTO) 0.2 (0.0-0.4); EOSINOPHILS % 2.6 % (0.0-6.0); HEMOGLOBIN 9.8 g/dL (12.0-16.0); LYMPHOCYTES # (AUTO) 1.3 (1.0-3.2); LYMPHOCYTES % 21.4 % (18.0-39.1); MEAN CORPUSCULAR HEMOGLOBIN 28.2 pg (28-32); MEAN CORPUSCULAR HGB CONC 31.6 g/dL (31-35); MEAN CORPUSCULAR VOLUME 89.3 fL (81-99); MONOCYTES # (AUTO) 0.6 (0.2-0.8); MONOCYTES % 9.4 % (4.4-11.3); NEUTROPHILS # (AUTO) 3.9 (2.1-6.9); NEUTROPHILS % 66.1 % (38.7-80.0); PLATELET COUNT 450 x10e3/uL (140-360); RED BLOOD COUNT 3.47 x10e6/uL (3.6-5.1); RED CELL DISTRIBUTION WIDTH 15.3 % (11.7-14.4); WHITE BLOOD COUNT 5.83 x10e3/uL (4.8-10.8)
[2023-12-07 00:08] LABS: ALBUMIN 3.1 g/dL (3.5-5.0); ALBUMIN/GLOBULIN RATIO 0.8 (0.8-2.0); ANION GAP 14.9 mmol/L (8-16); BILIRUBIN,TOTAL 0.2 mg/dL (0.2-1.2); CREATININE, SERUM 0.7 mg/dL (0.57-1.11); POTASSIUM 3.9 mmol/L (3.5-5.1); TOTAL PROTEIN 6.9 g/dL (6.5-8.1)
[2023-12-07 00:11] LABS: CALCIUM 10.1 mg/dL (8.4-10.2)
[2023-12-07 00:14] LABS: TROPONIN I 0.018 ng/mL (0-0.300)
[2023-12-07] MEDS: SODIUM CHLORIDE 0.9% 1000ML 1,000 ML IV STA (00:56)
[2023-12-07 01:27] LABS: BILIRUBIN,URINE NEGATIVE (NEGATIVE); CLARITY,URINE CLEAR (CLEAR); COLOR,URINE YELLOW (YELLOW); GLUCOSE, URINE NEGATIVE (NEGATIVE); KETONES,URINE NEGATIVE (NEGATIVE); LEUKOCYTE ESTERASE ,URINE TRACE (NEGATIVE); NITRITE,URINE NEGATIVE (NEGATIVE); PH,URINE 7 (5 - 7); PROTEIN,URINE DIPSTICK NEGATIVE (NEGATIVE); URINE UROBILINOGEN 0.2 mg/dL (0.2 - 1)
[2023-12-07 01:37] LABS: RBC,URINE 0-5 /HPF (0-5); WBC,URINE (MAN) 0-5 /HPF (0-5)
[2023-12-07 01:38] LABS: BACTERIA,URINE FEW /HPF; EPITHELIAL CELLS,URINE FEW /LPF; TRANSITIONAL EPI CELLS,URINE FEW
[2023-12-07] MEDS ORDERED: ULTRAM 50MG50 MG PO (02:52)
[2023-12-07 03:00] VITALS: BP 163/74; PULSE 86; RESP 17; TEMP 98; O2SAT 97
== END 2023-12-07 03:03 | disposition home or self-care (01) ==
LOC: ER 22:35
DX: M12.811 Other specific arthropathies, not elsewhere classified, right shoulder (principal); W18.39XA Other fall on same level, initial encounter; Y93.01 Activity, walking, marching and hiking; Y92.89 Other specified places as the place of occurrence of the external cause; E11.65 Type 2 diabetes mellitus with hyperglycemia; I10 Essential (primary) hypertension; K21.9 Gastro-esophageal reflux disease without esophagitis
CPT/HCPCS: 36415; 70450; 71045; 72125; 73030; 80053; 81001; 82550; 84484; 85025; 93005; 99284; J7030

== ENCOUNTER → 2024-10-09 | Day surgery (SDC) | payer MEDICARE ==
[2024-10-03 11:34] LABS: BASOPHILS % 0.1 % (0.0-1.0); EOSINOPHILS # (AUTO) 0.1 (0.0-0.4); EOSINOPHILS % 0.8 % (0.0-6.0); HEMOGLOBIN 7.9 g/dL (12.0-16.0); LYMPHOCYTES # (AUTO) 1.3 (1.0-3.2); LYMPHOCYTES % 15.1 % (18.0-39.1); MEAN CORPUSCULAR HEMOGLOBIN 26.5 pg (28-32); MEAN CORPUSCULAR HGB CONC 30.4 g/dL (31-35); MEAN CORPUSCULAR VOLUME 87.2 fL (81-99); MONOCYTES # (AUTO) 0.7 (0.2-0.8); MONOCYTES % 8.2 % (4.4-11.3); NEUTROPHILS # (AUTO) 6.7 (2.1-6.9); NEUTROPHILS % 75.1 % (38.7-80.0); PLATELET COUNT 569 x10e3/uL (140-360); RED BLOOD COUNT 2.98 x10e6/uL (3.6-5.1); RED CELL DISTRIBUTION WIDTH 19.8 % (11.7-14.4)
[~2024-10-09] MED LIST changes: +AMLODIPINE BESYL5 MG PO; +CRESTOR40 MG PO; +FLONASE ALLERG9.9 ML INH; +FORTEO2.4 ML; +LIDOCAINE HCL 2% LOCAL INJ 5 ML SDV VIAL INJ ONE; +METFORMIN HCL500 MG PO; +PEPCID20 MG PO; +PROPOFOL IV EMULSION 10 MG/ML 20 ML VIAL ONE; +PROTONIX20 MG PO; +ULTRAM 50MG50 MG PO; +[UNRECOGNIZED DRUG - OTHER] PO
[2024-10-09] MEDS: LACTATED RINGER'S 1,000 ML ONE (10:40)
[2024-10-09] MEDS: DEXTROSE 5% 250ML 250 ML IV ONE (10:41)
[2024-10-09 11:22] VITALS: TEMP 97.2
[2024-10-09 11:50] VITALS: BP 124/65; PULSE 76; RESP 15; O2SAT 99
== END | disposition home or self-care (01) ==
LOC: OR 09:08
PROVIDERS: ATTEND Internal Medicine Gastroenterology
DX: K29.50 Unspecified chronic gastritis without bleeding (principal); K57.30 Diverticulosis of large intestine without perforation or abscess without bleeding; K64.8 Other hemorrhoids; K28.9 Gastrojejunal ulcer, unspecified as acute or chronic, without hemorrhage or perforation; D50.9 Iron deficiency anemia, unspecified; E11.9 Type 2 diabetes mellitus without complications; I10 Essential (primary) hypertension; Z78.9 Other specified health status; I25.10 Atherosclerotic heart disease of native coronary artery without angina pectoris; E78.5 Hyperlipidemia, unspecified; I83.90 Asymptomatic varicose veins of unspecified lower extremity; K21.9 Gastro-esophageal reflux disease without esophagitis; M06.9 Rheumatoid arthritis, unspecified; Z88.8 Allergy status to other drugs, medicaments and biological substances; Z01.810 Encounter for preprocedural cardiovascular examination; Z01.812 Encounter for preprocedural laboratory examination; Z79.84 Long term (current) use of oral hypoglycemic drugs; Z79.899 Other long term (current) drug therapy; Z68.24 Body mass index [BMI] 24.0-24.9, adult
CPT/HCPCS: 36415 ×2; 43239; 45378; 82948; 85025; 88305; 88342; 93005; J2003; J2704; J7121

== ENCOUNTER 2024-12-31 08:25 | Emergency (ER) | payer MEDICARE ==
[~2024-12-31] VITALS: Ht 157.5 cm; Wt 61.2 kg
[~2024-12-31 08:25] MED LIST changes: -LIDOCAINE HCL 2% LOCAL INJ 5 ML SDV VIAL INJ ONE; -PROPOFOL IV EMULSION 10 MG/ML 20 ML VIAL ONE
[2024-12-31 08:42] VITALS: TEMP 97.7
[2024-12-31] MEDS ORDERED: SODIUM CHLORIDE FLUSH 10 ML SYR IV PRN (09:00)
[2024-12-31 09:54] LABS: BASOPHILS % 0.1 % (0.0-1.0); EOSINOPHILS # (AUTO) 0.1 (0.0-0.4); EOSINOPHILS % 0.4 % (0.0-6.0); HEMATOCRIT 29.4 % (34.2-44.1); HEMOGLOBIN 9.1 g/dL (12.0-16.0); LYMPHOCYTES # (AUTO) 1.2 (1.0-3.2); LYMPHOCYTES % 10.9 % (18.0-39.1); MEAN CORPUSCULAR HEMOGLOBIN 27.7 pg (28-32); MEAN CORPUSCULAR VOLUME 89.6 fL (81-99); MONOCYTES # (AUTO) 0.6 (0.2-0.8); MONOCYTES % 5.7 % (4.4-11.3); NEUTROPHILS # (AUTO) 9.1 (2.1-6.9); NEUTROPHILS % 81.7 % (38.7-80.0); PLATELET COUNT 420 x10e3/uL (140-360); RED BLOOD COUNT 3.28 x10e6/uL (3.6-5.1); RED CELL DISTRIBUTION WIDTH 16.3 % (11.7-14.4); WHITE BLOOD COUNT 11.18 x10e3/uL (4.8-10.8)
[2024-12-31 10:09] LABS: BILIRUBIN,URINE NEGATIVE (NEGATIVE); CLARITY,URINE CLEAR (CLEAR); COLOR,URINE YELLOW (YELLOW); GLUCOSE, URINE NEGATIVE (NEGATIVE); KETONES,URINE NEGATIVE (NEGATIVE); LEUKOCYTE ESTERASE ,URINE NEGATIVE (NEGATIVE); NITRITE,URINE NEGATIVE (NEGATIVE); PH,URINE 5.5 (5 - 7); PROTEIN,URINE DIPSTICK NEGATIVE (NEGATIVE); URINE UROBILINOGEN 0.2 mg/dL (0.2 - 1)
[2024-12-31 10:12] LABS: BACTERIA,URINE RARE /HPF; EPITHELIAL CELLS,URINE RARE /LPF; RBC,URINE 0-5 /HPF (0-5); TRANSITIONAL EPI CELLS,URINE RARE; WBC,URINE (MAN) 0-5 /HPF (0-5)
[2024-12-31 10:17] LABS: ALBUMIN 2.4 g/dL (3.5-5.0); ALBUMIN/GLOBULIN RATIO 0.7 (0.8-2.0); ALKALINE PHOSPHATASE 70 IU/L (40-150); ANION GAP 11.9 mmol/L (8-16); BILIRUBIN,TOTAL 0.2 mg/dL (0.2-1.2); BLOOD UREA NITROGEN 18 mg/dL (7-26); BUN/CREATININE RATIO 26 (6-25); CALCIUM 8.4 mg/dL (8.4-10.2); CARBON DIOXIDE 22 mmol/L (22-29); CHLORIDE 104 mmol/L (98-107); CREATININE, SERUM 0.69 mg/dL (0.57-1.11); EST GLOMERULAR FILTRATION RATE 87 ML/MIN (>=60); GLUCOSE 106 mg/dL (74-118); POTASSIUM 3.9 mmol/L (3.5-5.1); SODIUM 134 mmol/L (136-145); TOTAL PROTEIN 5.7 g/dL (6.5-8.1)
[2024-12-31 10:25] LABS: ALANINE AMINOTRANSFERASE < 6 IU/L (0-55)
[2024-12-31] MEDS ORDERED: IOPAMIDOL 370 MG/ML 100 ML INFUS..BTL INJ ONE (10:32)
[2024-12-31 12:23] VITALS: PULSE 111; RESP 18; O2SAT 99
== END 2024-12-31 12:26 | disposition home or self-care (01) ==
LOC: ER 08:30
DX: R53.1 Weakness (principal); R53.83 Other fatigue; I10 Essential (primary) hypertension; E11.9 Type 2 diabetes mellitus without complications; K21.9 Gastro-esophageal reflux disease without esophagitis; R94.31 Abnormal electrocardiogram [ECG] [EKG]; Z87.19 Personal history of other diseases of the digestive system
CPT/HCPCS: 36415; 70450; 71045; 74177; 80053; 81001; 83690; 83880; 84484; 85025; 93005; 94760; 99284; Q9967